=== PATIENT | male | born 1955 | race Caucasian/White ===

== ENCOUNTER 2020-06-03 09:25 | Outpatient (CLI) | payer MEDICARE, SELFPAY ==
--- NOTE | ~2020-06-03 | XR_ITS ---
EXAMINATION:XR_CERV2-3V_CR DATE: 06/03/2020 09:58 INDICATION: Hand numbness TECHNIQUE: AP, lateral, and odontoid views of the cervical spine are provided. COMPARISON: CT, 02/04/2017 FINDINGS: There are 2 mm of unchanged retrolisthesis of C4 on C5. The vertebral body heights are main tained. The odontoid is intact. No fracture is identified. There is severe loss of intervertebral dis c space height from C4-5 through C6-7. Prevertebral soft tissues are normal. There is moderate multil evel facet and vertebral joint osteoarthritis. Carotid atherosclerosis is noted. IMPRESSION: 1. Moderate to severe cervical spondylosis without acute findings or significant interval change. Reviewed, dictated and finalized at location A. ETRIC ANAESTHETIST IMPRESSION: 1. Moderate to severe cervical spondylosis without acute findings or significan t interval change.
--- NOTE | ~2020-06-03 | XR_ITS ---
EXAMINATION: XR chest 2V DATE: 06/03/2020 09:58 INDICATION: Hand numbness TECHNIQUE: Frontal and lateral views of the chest are obtained COMPARISON: 04/13/2016 FINDINGS: The lungs are free of acute opacities. There are chronic opacities in the bilateral suprahi lar regions which have not significantly changed. There is no pleural effusion or pneumothorax. The c ardiomediastinal silhouette is normal. There is moderate thoracic spondylosis. Surgical clips in the upper abdomen on the lateral view are consistent with cholecystectomy. IMPRESSION: 1. No acute cardiopulmonary abnormality. Reviewed, dictated and finalized at location A. ERMAKER SHIP
[2020-06-03 09:43] LABS: Basophils Absolute Auto 0.03 K/mm3 (0.00-0.10); Basophils Percent Auto 0.4 % (0.0-1.0); Eosinophils Percent Auto 1.3 % (1.0-6.0); Hematocrit 41.2 % (37.0-46.0); Hemoglobin 14.2 g/dL (12.4-15.3); Immature Granulocyte Absolute 0.03 K/mm3 (0.00-0.00); Immature Granulocyte Percent A 0.4 % (0.0-0.0); Lymphocytes Absolute Auto 1.85 K/mm3 (1.10-4.50); Lymphocytes Percent Auto 24.5 % (18.0-42.0); Mean Corpuscular HGB Conc 34.5 g/dL (32.0-36.0); Mean Corpuscular Hemoglobin 31.9 pg (27.0-31.0); Mean Corpuscular Volume 92.6 fL (78.0-102.0); Mean Platelet Volume 10.1 fl (8.7-11.0); Monocytes Absolute Auto 0.68 K/mm3 (0.10-0.90); Neutrophils Absolute Auto 4.9 K/mm3 (1.7-7.2); Neutrophils Percent Auto 64.4 % (50.0-70.0); Platelet Count Result 205 K/mm3 (150-420); Red Blood Count 4.45 M/mm3 (4.70-6.10); Red Cell Distribution Width 12.5 % (11.6-14.4); White Blood Count 7.5 K/mm3 (4.8-10.8)
[2020-06-03 11:21] LABS: Alanine Aminotransferase 144 U/L (16-63); Albumin Level 4.1 g/dL (3.4-5.0); Alkaline Phosphatase 60 U/L (46-116); Anion Gap 11 mmol/L (8-16); Aspartate Amino Transferase 79 U/L (15-37); Bilirubin,Total 1.3 mg/dL (0.00-1.00); Blood Urea Nitrogen 10 mg/dL (7-18); CRP < 0.5 mg/dL (0.0-0.9); Carbon Dioxide 32 mmol/L (21-32); Chloride 100 mmol/L (98-108); Creatine Kinase 389 U/L (39-308); Estimated Glomerular Filt Rate > 60; Glucose 108 mg/dL (70-99); Magnesium 0.6 mg/dL (1.8-2.4); Osmolality Calculated 296 mOsm/kg (285-295); Potassium 3.2 mmol/L (3.5-5.1); Sodium 143 mmol/L (136-145); Thyroid Stimulating Hormone 2.41 uIU/mL (0.36-3.74); Total Protein 7.7 g/dL (6.4-8.2); Uric Acid 6.8 mg/dL (3.5-7.2)
[2020-06-03 11:30] LABS: Calcium 5.9 mg/dL (8.5-10.1)
[2020-06-07 16:41] LABS: Hepatitis A Antibody IgM Nonreactive; Hepatitis B Core Antibody Nonreactive (Nonreactive); Hepatitis B Surface Antigen Nonreactive (Nonreactive); Hepatitis C Signal to Cutoff 0.03 ratio (<1.00); Hepatitis C Virus Antibody Nonreactive (Nonreactive)
== END 2020-06-03 09:26 | disposition home or self-care (01) ==
LOC: CHSLAB 09:32
PROVIDERS: PCP Internal Medicine; Visit Provider Internal Medicine
DX: R20.0 Anesthesia of skin (principal); I10 Essential (primary) hypertension; M13.0 Polyarthritis, unspecified; R94.5 Abnormal results of liver function studies
CPT/HCPCS: 36415; 71046; 72040; 80053; 80074; 82550; 83735; 84443; 84550; 85025; 86140

== ENCOUNTER 2020-06-07 07:39 | Outpatient (CLI) | payer MEDICARE, SELFPAY ==
--- NOTE | ~2020-06-07 | US_ITS ---
EXAMINATION: US right upper quadrant DATE: 06/07/2020 08:03 INDICATION: Right upper quadrant pain TECHNIQUE: Multiple grayscale and Doppler ultrasound images of the abdomen were obtained. COMPARISON: CT, 10/25/2012 FINDINGS: Bowel gas obscures visualization of the pancreas. The visualized portions of the pancreas a re unremarkable. There is a 2.1 cm hemangioma in the right hepatic lobe. The liver is otherwise ana cristina l with normal echogenicity and echotexture. No surface nodularity. Normal hepatopetal flow in the barbara n portal vein. The gallbladder is surgically absent. The normal common bile duct measures 4 mm. IMPRESSION: 1. No sonographic correlate for the patient's symptoms. Reviewed, dictated and finalized at location A. TAILER
== END 2020-06-07 07:40 | disposition home or self-care (01) ==
LOC: CHSIMG 07:40
PROVIDERS: PCP Internal Medicine; Visit Provider Internal Medicine
DX: R94.5 Abnormal results of liver function studies (principal)
CPT/HCPCS: 76705

== ENCOUNTER 2021-01-23 09:58 | Outpatient (CLI) | payer MEDICARE, SELFPAY ==
[2021-01-23 13:58] LABS: SARS-CoV-2 RNA PCR Negative (Negative)
== END 2021-01-23 09:59 | disposition home or self-care (01) ==
LOC: CHSLAB 10:00
PROVIDERS: PCP Internal Medicine; Visit Provider Internal Medicine
DX: Z20.822 Contact with and (suspected) exposure to COVID-19 (principal)
CPT/HCPCS: C9803; U0003; U0005

== ENCOUNTER 2021-02-14 05:53 | Emergency (ER) | payer MEDICARE, SELFPAY ==
--- NOTE | ~2021-02-14 | XR_ITS ---
EXAMINATION: XR chest 2V DATE: 02/14/2021 07:01 INDICATION: Dizziness TECHNIQUE: AP and lateral views of the chest are obtained. COMPARISON: 06/03/2020 FINDINGS: Chronic bilateral suprahilar opacities are unchanged. No acute airspace opacities are ident ified. There is no pleural effusion or pneumothorax. The cardiomediastinal silhouette is normal. Ther e is moderate thoracic spondylosis. IMPRESSION: 1. No acute cardiopulmonary abnormality. Reviewed, dictated and finalized at location A.
--- NOTE | ~2021-02-14 | CT_ITS ---
EXAMINATION: CT brain wo con INDICATION: Dizziness COMPARISON: 02/04/2017 TECHNIQUE: Standard unenhanced head CT. The dose-length product (DLP) was 681.00 mGy-cm. The mA was a djusted according to patient size. Iterative reconstruction technique was employed. FINDINGS: There is no intracranial hemorrhage, acute infarction, or abnormal mass lesion. The ventric les are normal. There is no abnormal mass effect or midline shift. The rudolph-white matter differentiat ion is normal. The basal cisterns are patent. The orbits are normal. There is mucosal thickening of t he left sphenoid sinus and right frontal sinus. IMPRESSION: 1. No acute intracranial abnormality. Reviewed, dictated and finalized at location A.
[2021-02-14 06:14] VITALS: BP 192/116; PULSE 126; RESP 23; TEMP 36.4; O2SAT 96
--- NOTE | 2021-02-14 06:20 | ECG_ITS ---
Measurements Intervals [place] Rate: 120 P: 60 [place]: 135 QRS: 19 QRSD: 134 T: -7 QT: 338 QTc: 478 Interpretive Statements SINUS TACHYCARDIA VENTRICULAR PREMATURE COMPLEX RIGHT BUNDLE BRANCH BLOCK BASELINE ARTIFACT- I, II, III, AVR, AVL, AVF, V1-V6 ABNORMAL ECG Electronically Signed On 02-14-2021 15:48:50 CDT by Seth Blancas D.O.
--- NOTE | 2021-02-14 06:25 | ED.DIZZY ---
HPI - Dizziness General Chief Complaint: Dizziness <Delano Mejias MD - Last Filed: 02/14/21 06:37> Stated Complaint: General Sickness <Delano Mejias MD - Last Filed: 02/14/21 06:37> Time Seen by Provider: 02/14/21 06:26 <Delano Mejias MD - Last Filed: 02/14/21 06:37> Source: patient and family <Delano Mejias MD - Last Filed: 02/14/21 06:37> Mode of arrival: wheelchair <Delano Mejias MD - Last Filed: 02/14/21 06:37> Limitations: no limitations <Delano Mejias MD - Last Filed: 02/14/21 06:37> History of Present Illness HPI Narrative: 65-year-old man who drinks daily comes in today complaining of feeling like he is going to pass out, shaking and sweating. It started just prior to arrival. Patient states that he last drank at 7:00 p.m. last night. He states that he has had no vomiting, diarrhea, chest pain, shortness of breath, abdominal pain, dysuria, cough or cold symptoms. <Delano Mejias MD - Last Filed: 02/14/21 06:37> MD elicited complaint: lightheadedness <Delano Mejias MD - Last Filed: 02/14/21 06:37> Onset (ago): hour(s) (1) <Delano Mejias MD - Last Filed: 02/14/21 06:37> Timing: sudden onset <Delano Mejias MD - Last Filed: 02/14/21 06:37> Severity: severe <Delano Mejias MD - Last Filed: 02/14/21 06:37> Description: lightheadedness <Delano Mejias MD - Last Filed: 02/14/21 06:37> History of similar symptoms: Yes <Delano Mejias MD - Last Filed: 02/14/21 06:37> Exacerbating factors: change in body position and standing <Delano Mejias MD - Last Filed: 02/14/21 06:37> Relieving factors: nothing <Delano Mejias MD - Last Filed: 02/14/21 06:37> Related Data Home Medications: Home Medications Medication Instructions Recorded Confirmed atorvastatin 10 mg tablet 10 mg PO DAILY 08/10/20 02/14/21 duloxetine 20 mg capsule,delayed 20 mg PO BID 08/10/20 02/14/21 release losartan 50 mg tablet 50 mg PO DAILY 08/10/20 02/14/21 magnesium oxide 400 mg (241.3 mg 400 mg PO DAILY 08/10/20 02/14/21 magnesium) tablet metoprolol succinate 50 mg 50 mg PO DAILY 08/10/20 02/14/21 tablet,extended release 24 hr omeprazole 20 mg capsule,delayed 20 mg PO DAILY 08/10/20 02/14/21 release potassium chloride 20 mEq 20 meq PO BID 08/10/20 02/14/21 tablet,extended release cyclobenzaprine 10 mg PO DAILY 02/14/21 02/14/21 <Delano Mejias MD - Last Filed: 02/14/21 06:37> Allergies/Adverse Reactions: Allergies Allergy/AdvReac Type Severity Reaction Status Date / Time codeine AdvReac Mild Vomiting Verified 08/10/20 10:52 <Delano Mejias MD - Last Filed: 02/14/21 06:37> Review of Systems Review of Systems: All systems reviewed & are unremarkable except as noted in HPI and below <Delano Mejias MD - Last Filed: 02/14/21 06:37> Constitutional: Constitutional: Denies chills, Denies fever(s) and Reports weakness <Delano Mejias MD - Last Filed: 02/14/21 06:37> Eyes: Eyes: Denies change in vision and Denies photophobia <Delano Mejias MD - Last Filed: 02/14/21 06:37> ENT: Denies dysphagia, Denies nasal congestion and Denies sore throat <Delano Mejias MD - Last Filed: 02/14/21 06:37> Cardiovascular: Cardiovascular: Denies chest pain and Denies radiating jaw, neck or arm pain <Delano Mejias MD - Last Filed: 02/14/21 06:37> Respiratory: Respiratory: Denies cough, Denies dyspnea and Denies wheezing <Delano Mejias MD - Last Filed: 02/14/21 06:37> Gastrointestinal: Gastrointestinal: Denies abdominal pain, Denies diarrhea, Denies nausea and Denies vomiting <Delano Mejias MD - Last Filed: 02/14/21 06:37> Genitourinary: Genitourinary: Denies dysuria and Denies urinary frequency <Delano Mejias MD - Last Filed: 02/14/21 06:37> Musculoskeletal: Musculoskeletal: Denies back pain, Denies arthralgias and Denies joint
[2021-02-14 06:43] LABS: Basophils Absolute Auto 0.03 K/mm3 (0.00-0.10); Basophils Percent Auto 0.4 % (0.0-1.0); Eosinophils Absolute Auto 0.08 K/mm3 (0.02-0.50); Hematocrit 38.9 % (37.0-46.0); Hemoglobin 13.3 g/dL (12.4-15.3); Immature Granulocyte Absolute 0.07 K/mm3 (0.00-0.00); Immature Granulocyte Percent A 0.9 % (0.0-0.0); Lymphocytes Absolute Auto 1.53 K/mm3 (1.10-4.50); Lymphocytes Percent Auto 18.6 % (18.0-42.0); Mean Corpuscular HGB Conc 34.2 g/dL (32.0-36.0); Mean Corpuscular Volume 93.7 fL (78.0-102.0); Monocytes Absolute Auto 0.62 K/mm3 (0.10-0.90); Monocytes Percent Auto 7.5 % (2.0-11.0); Neutrophils Absolute Auto 5.9 K/mm3 (1.7-7.2); Neutrophils Percent Auto 71.6 % (50.0-70.0); Platelet Count Result 181 K/mm3 (150-420); Red Blood Count 4.15 M/mm3 (4.70-6.10); Red Cell Distribution Width 12.7 % (11.6-14.4); White Blood Count 8.2 K/mm3 (4.8-10.8)
[2021-02-14 06:50] LABS: Add Urine Microscopic? YES; Appearance Urine Clear (Clear); Bilirubin Urine Negative (Negative); Blood Urine Negative (Negative); Color Urine Yellow (Yellow); Glucose Urine UA Negative (Negative); Ketones Urine Negative (Negative); Leukocyte Esterase Ur Negative LEU/UL (Negative); Nitrate Urine Negative (Negative); Protein Urine Negative (Negative)
[2021-02-14 06:54] LABS: RBC Urine None seen /hpf (0-2); WBC Urine None seen /hpf (0-3)
[2021-02-14 06:55] LABS: Bacteria Urine Trace /hpf
[2021-02-14 06:58] LABS: INR 1.2; Partial Thromboplastin Time 25.7 SEC (23.90-30.70); Prothrombin Time 12.8 Seconds (9.50-12.10)
[2021-02-14 06:59] LABS: Amphetamine Screen Urine Negative (Negative); Barbiturate Screen Urine Negative (Negative); Benzodiazepines Screen Urine Negative (Negative); Cannabinoid Screen Urine Negative (Negative); Cocaine Screen Urine Negative (Negative); Methadone Screen Urine Negative (Negative); Opiate Screen Urine Positive (Negative); Phencyclidine Screen Urine Negative (Negative)
[2021-02-14] MEDS: THIAMINE HCL INJ 100 MG, FOLIC ACID INJ 1 MG, MULTIVITAMINS-12 INJ VIAL 1 5 ML, MULTIVI... 500 MG IV CONT (06:59)
[2021-02-14 07:01] LABS: Alanine Aminotransferase 82 U/L (16-63); Albumin Level 3.7 g/dL (3.4-5.0); Alkaline Phosphatase 47 U/L (46-116); Anion Gap 12 mmol/L (8-16); Aspartate Amino Transferase 58 U/L (15-37); Bilirubin,Total 0.9 mg/dL (0.00-1.00); Blood Urea Nitrogen 17 mg/dL (7-18); Calcium 6.3 mg/dL (8.5-10.1); Carbon Dioxide 28 mmol/L (21-32); Chloride 101 mmol/L (98-108); Estimated CRCL calculation 59 ml/min; Estimated Glomerular Filt Rate > 60; Glucose 105 mg/dL (70-99); Lipase 56 U/L (73-393); Osmolality Calculated 293 mOsm/kg (285-295); Phosphorus 4.2 mg/dL (2.6-4.7); Potassium 3.5 mmol/L (3.5-5.1); Sodium 141 mmol/L (136-145); Total Protein 7.4 g/dL (6.4-8.2); Troponin I 10.7 ng/L (0.00-60.4)
[2021-02-14 07:06] LABS: CRP < 0.5 mg/dL (0.0-0.9); Ethanol < 3 mg/dL (0-6)
[2021-02-14 07:15] LABS: Magnesium 0.7 mg/dL (1.8-2.4)
[2021-02-14 07:16] VITALS: BP 181/111; PULSE 119; RESP 21; O2SAT 96
[2021-02-14] MEDS: MAGNESIUM SULF 2 GM/WATER 50ML 2 GM/50 ML BAG IVPB ×2 (07:30→08:34)
[2021-02-14 07:35] LABS: SARS-CoV-2 RNA PCR Positive (Negative)
--- NOTE | 2021-02-14 07:39 | PC.NURSE ---
pt resting quietly in exam room. c/o feeling shaky at this time. no tremors noted. skin w/d and sl pale. resp even and non-labored. sipping water. denies nausea. iv infusing well without sx of infiltration. VSS.
--- NOTE | 2021-02-14 09:07 | PC.NURSE ---
pt ate buttered toast. denies nausea. denies shaky feeling at this time. iv infusing well.
[2021-02-14 09:53] VITALS: BP 152/99; PULSE 101; RESP 18; TEMP 36.6; O2SAT 96
== END 2021-02-14 09:56 | disposition home or self-care (01) ==
PROVIDERS: Emergency Medicine; Emergency Provider Emergency Medicine; PCP Internal Medicine
DX: E83.42 Hypomagnesemia (principal); F10.230 Alcohol dependence with withdrawal, uncomplicated; U07.1 COVID-19; Z79.899 Other long term (current) drug therapy; K21.9 Gastro-esophageal reflux disease without esophagitis; I10 Essential (primary) hypertension; K58.9 Irritable bowel syndrome, unspecified
CPT/HCPCS: 36415; 70450; 71046; 80053; 80307; 81001; 83605; 83690; 83735; 84100; 84484; 85025; 85610; 85730; 86140; 87040; 93005; 96365; 96366; 96368; 99283; 99284; C9803; J3411; J3475; J7030; U0003; U0005

== ENCOUNTER 2021-06-30 16:21 | Inpatient (IN) | payer MEDICARE, OTHER, SELFPAY ==
--- NOTE | ~2021-06-30 | CT_ITS ---
EXAMINATION: CT brain wo con DATE: 06/30/2021 17:01 INDICATION: Confusion TECHNIQUE: Computed tomography (CT) of the head was performed without intravenous contrast. Sagittal and coronal reconstructions were performed. The mA was adjusted according to patient size. Iterative reconstruction technique was employed. The dose-length product was 681.00 mGy-cm. COMPARISON: head CT dated 02/14/2021 FINDINGS: Small old lacunar infarct at the anterior limb of the left internal capsule. No acute intracranial he morrhage, acute infarction or abnormal extra axial fluid collection. There is moderate scattered whit e matter hypoattenuation consistent with chronic small vessel ischemic disease. Ventricles are ana cristina l and symmetric. No mass/mass effect. Small dystrophic calcification at the right parietal lobe. Mild mucosal thickening the left sphenoid sinus. The orbits and mastoid air cells are normal. IMPRESSION: 1. No acute intracranial process. 2. Unchanged small old lacunar infarct at the anterior limb of left internal capsule 3. Stable moderate scattered white matter hypoattenuation consistent with chronic small vessel ischem ic disease. Reviewed, dictated and finalized at location A. TRANSFER CLERK IMPRESSION: 1. No acute intracranial process. 2. Unchanged small old lacunar infarct at the anterior limb of left internal ca psule 3. Stable moderate scattered white matter hypoattenuation consistent with chron ic small vessel ischemic disease.
--- NOTE | ~2021-06-30 | US_ITS ---
EXAMINATION: US carotid duplex BI DATE: 07/03/2021 08:14 INDICATION: Aphasia and confusion TECHNIQUE: Grayscale, color Doppler, and pulsed Doppler images of the cervical carotid arteries were obtained. The degree of vessel stenosis is placed in one of the following categories: normal, <50%, 5 0-69%, >=70% but less than near-occlusion, near-occlusion, or total occlusion. Note that percent sten osis relative to normal distal artery lumen diameter is indirectly measured from velocity measurement s as described by Pineda, et al. Radiology 2003; 229:340-346. COMPARISON: None. FINDINGS: RIGHT: The right common carotid artery (CCA) peak systolic velocity (PSV) is 90 cm/s. The right internal car otid artery (ICA) PSV is 102 cm/s. The right ICA end-diastolic velocity (EDV) is 27 cm/s. The right I CA/CCA PSV ratio is 1.1. Grayscale and color Doppler images yield an estimate of <50% diameter reduct ion from plaque in the ICA. The external carotid artery (ECA) PSV is 49 cm/s. There is antegrade flow in the right vertebral artery. LEFT: The left CCA PSV is 108 cm/s. The left ICA PSV is 92 cm/s. The left ICA EDV is 24 cm/s. The left ICA/ CCA PSV ratio is 0.9. Grayscale and color Doppler images yield an estimate of <50% diameter reduction from plaque in the ICA. The ECA PSV is 56 cm/s. There is antegrade flow in the left vertebral artery . IMPRESSION: 1. <50% stenosis in the right internal carotid artery. 2. <50% stenosis in the left internal carotid artery. Reviewed, dictated and finalized at location A.
--- NOTE | ~2021-06-30 | MR_ITS ---
EXAMINATION: MR brain/brain stem wo con DATE: 07/01/2021 10:07 INDICATION: Altered mental status. TECHNIQUE: Magnetic resonance imaging (MRI) of the brain and brainstem was performed without intraven ous contrast. Sequences included sagittal and axial T1-weighted FSE, axial diffusion-weighted FS EPI, axial T2*-weighted GRE, axial T2-weighted FLAIR Propeller, and axial T2-weighted Propeller. Apparent diffusion coefficient (ADC) maps were created. COMPARISON: Head CT 06/30/2021 FINDINGS: There are scattered areas of nonspecific increased T2-weighted signal intensity in the cere bral white matter. There is an old lacunar infarct in the left basal ganglia. There is no intracrania l hemorrhage, acute infarction, or abnormal intracranial mass lesion. The ventricles are normal in si ze. There is mild mucosal thickening in the paranasal sinuses. The orbits are normal. There is a trac e left mastoid effusion. IMPRESSION: 1. Moderate nonspecific cerebral white matter disease, which likely represents chronic small vessel i schemic disease. 2. Old lacunar infarct in the left basal ganglia. Reviewed, dictated and finalized at location A. RT CLERK IMPRESSION: 1. Moderate nonspecific cerebral white matter disease, which likely represents chronic small vessel ischemic disease. 2. Old lacunar infarct in the left basal ganglia.
--- NOTE | ~2021-06-30 | XR_ITS ---
EXAMINATION: XR chest 1V portable DATE: 06/30/2021 18:33 INDICATION: Confusion TECHNIQUE: frontal view of the chest was obtained. COMPARISON: Chest radiograph dated 02/14/[address] dated 04/13/2016 FINDINGS: No significant change in chronic masslike opacities in the bilateral suprahilar regions with appearan ce favoring atelectasis/scarring on CT from 5 years prior. No new airspace opacities, pulmonary edema , pleural effusion or pneumothorax. The cardiomediastinal silhouette is normal. IMPRESSION: 1. Stable appearance of chronic bilateral suprahilar opacities consistent with atelectasis/scarring. No acute cardiopulmonary disease. Reviewed, dictated and finalized at location A. ING MACHINE FEEDER
--- NOTE | 2021-06-30 16:35 | ED.GENADULT ---
HPI - General Adult General Chief complaint: Altered Mental Status Stated complaint: lost appetite,slept all day,memory loss,headache Time Seen by Provider: 06/30/21 16:35 Source: patient Mode of arrival: ambulatory History of Present Illness HPI narrative: Александр is a 66M with a PMH of GERD, HTN, HLD and IBS that presented to the ER with his with AMS for a couple days. He woke up and went to work on the computer and couldn't work it. He has also had trouble following directions, getting oriented just generally gets confused. 2 days ago he reportedly had some ataxia with his hands. Today he had a headache but the ataxia and headache have resolved but confusion persists. He denies any CP, SOB, lightheadedness, N/V or head trauma. Related Data Home Medications Medication Instructions Recorded Confirmed atorvastatin 10 mg tablet 10 mg PO DAILY 08/10/20 06/30/21 duloxetine 20 mg capsule,delayed 30 mg PO BID 08/10/20 06/30/21 release magnesium oxide 400 mg (241.3 mg 400 mg PO DAILY 08/10/20 06/30/21 magnesium) tablet metoprolol succinate 50 mg 50 mg PO BID 08/10/20 06/30/21 tablet,extended release 24 hr potassium chloride 20 mEq 20 meq PO BID 08/10/20 06/30/21 tablet,extended release Allergies Allergy/AdvReac Type Severity Reaction Status Date / Time codeine AdvReac Mild Vomiting Verified 07/04/21 15:05 Review of Systems Constitutional: Constitutional: Reports no additional constitutional complaints Eyes: Eyes: Reports no additional eye complaints ENT: Reports system reviewed and no additional complaints, except as documented Cardiovascular: Cardiovascular: Reports no additional cardiovascular complaints Respiratory: Respiratory: Reports no additional respiratory complaints Gastrointestinal: Gastrointestinal: Reports no additional gastrointestinal complaints Genitourinary: Genitourinary: Reports no additional male genitourinary complaints Musculoskeletal: Musculoskeletal: Reports no additional musculoskeletal complaints Integumentary/Breasts: Skin/Breast: Reports system reviewed and no additional complaints, except as docu Neurologic: Reports as per HPI Psychiatric: Psychiatric: Reports no additional psychiatric complaints Endocrine: Endocrine: Reports no additional endocrine complaints Hematologic/Lymphatic: Hematologic/Lymphatic: Reports no additional hematologic/lymphatic complaints Allergic/Immunologic: Allergic/Immunologic: Reports no additional allergic/immunologic complaints [facility] Past Medical History Medical History (System 07/04/21 @ 15:05 by Ebony Neri) Gastroesophageal reflux disease Hemangioma of liver Hypertension Irritable bowel syndrome Social History Social History (System 07/04/21 @ 15:05 by Ebony Neri) Smoking status: Never smoker Alcohol intake: current Alcohol use details: Daily Substance use: never Exam Const: General: no acute distress and alert Orientation/consciousness: patient oriented x3 Limitations: No altered mental status HENMT: Head: normal to inspection Other: atraumatic Eyes: Conjunctivae: conjunctivae normal Pupils: Equal, round and reactive pupils present Neck: Neck: normal visual inspection Chest: Chest palpation & inspection: normal inspection of the chest Resp: Effort & Inspection: normal respiratory effort Auscultation: clear to auscultation bilaterally Cardio: Rate: regular rate Rhythm: regular rhythm GI: Inspection: non-distended GI Palp: Yes Soft to palpation, No Tenderness to palpation present (GI) and No Guarding due to palpation present (GI) Skin: General skin exam: normal color Rashes: no rashes Neuro: General: moves all extremities, no meningeal signs, no focal motor deficits and CN's II-XI intact bilaterally Cranial nerves: Yes Nystagmus not present Other: Oriented to self only. Is very confused. He cannot follow directions very well and he has trouble finding words as well. Extrem: Gene
--- NOTE | 2021-06-30 16:45 | ECG_ITS ---
Measurements Intervals [place] Rate: 76 P: 58 [place]: 145 QRS: -14 QRSD: 132 T: 13 QT: 378 QTc: 427 Interpretive Statements SINUS RHYTHM RIGHT BUNDLE BRANCH BLOCK [120+ ms QRS DURATION, UPRIGHT V1, 40+ ms S IN I/aVL/V4/V5/V6] ABNORMAL ECG COMPARED TO ECG 02/14/2021 06:30:41 HEART RATE HAS DECREASED Electronically Signed On 06-30-2021 17:22:54 RUBBER ATTACHER by Clarence Michaud M.D.
[2021-06-30 16:47] VITALS: BP 173/97; PULSE 78; RESP 16; TEMP 36.8; O2SAT 100
[2021-06-30 17:08] LABS: Basophils Absolute Auto 0.02 K/mm3 (0.00-0.10); Basophils Percent Auto 0.2 % (0.0-1.0); Eosinophils Absolute Auto 0.06 K/mm3 (0.02-0.50); Eosinophils Percent Auto 0.7 % (1.0-6.0); Hematocrit 41.4 % (37.0-46.0); Hemoglobin 13.9 g/dL (12.4-15.3); Immature Granulocyte Absolute 0.03 K/mm3 (0.00-0.00); Immature Granulocyte Percent A 0.3 % (0.0-0.0); Lymphocytes Absolute Auto 1.76 K/mm3 (1.10-4.50); Lymphocytes Percent Auto 19.9 % (18.0-42.0); Mean Corpuscular HGB Conc 33.6 g/dL (32.0-36.0); Mean Corpuscular Hemoglobin 32.5 pg (27.0-31.0); Mean Corpuscular Volume 96.7 fL (78.0-102.0); Mean Platelet Volume 9.7 fl (8.7-11.0); Monocytes Absolute Auto 0.82 K/mm3 (0.10-0.90); Monocytes Percent Auto 9.3 % (2.0-11.0); Neutrophils Absolute Auto 6.1 K/mm3 (1.7-7.2); Neutrophils Percent Auto 69.6 % (50.0-70.0); Platelet Count Result 198 K/mm3 (150-420); Red Blood Count 4.28 M/mm3 (4.70-6.10); Red Cell Distribution Width 12.2 % (11.6-14.4); White Blood Count 8.8 K/mm3 (4.8-10.8)
[2021-06-30 17:19] LABS: INR 1.1; Prothrombin Time 11.8 Seconds (9.50-12.10)
[2021-06-30 17:22] LABS: Alanine Aminotransferase 55 U/L (16-63); Alkaline Phosphatase 45 U/L (46-116); Anion Gap 12 mmol/L (8-16); Aspartate Amino Transferase 38 U/L (15-37); Bilirubin,Total 1.5 mg/dL (0.00-1.00); Blood Urea Nitrogen 11 mg/dL (7-18); Calcium 8.9 mg/dL (8.5-10.1); Carbon Dioxide 27 mmol/L (21-32); Chloride 98 mmol/L (98-108); Estimated CRCL calculation 57 ml/min; Estimated Glomerular Filt Rate > 60; Ethanol 3 mg/dL (0-6); Glucose 108 mg/dL (70-99); Osmolality Calculated 284 mOsm/kg (285-295); Potassium 3.7 mmol/L (3.5-5.1); Sodium 137 mmol/L (136-145); Total Protein 7.9 g/dL (6.4-8.2)
[2021-06-30 17:28] LABS: Appearance Urine Clear (Clear); Bilirubin Urine Negative (Negative); Color Urine Yellow (Yellow); Glucose Urine UA Negative (Negative); Ketones Urine Negative (Negative); Leukocyte Esterase Ur Negative (Negative); Nitrate Urine Negative (Negative); Protein Urine Negative (Negative); Specific Grav Ur 1.025 (1.010-1.020); Urobilinogen Urine 0.2 mg/dL (0.2-1.0)
[2021-06-30 17:28] LABS: Magnesium 0.7 mg/dL (1.8-2.4)
[2021-06-30 17:31] LABS: Troponin I 7.7 ng/L (0.00-60.4)
[2021-06-30 17:33] LABS: Add Urine Microscopic? YES; Bacteria Urine Trace /hpf; Blood Urine Trace (Negative); Squamous Epithelial Cell Urine Rare /hpf (Few); WBC Urine 0-3 /hpf (0-3)
[2021-06-30 17:34] LABS: Thyroid Stimulating Hormone 1.92 uIU/mL (0.36-3.74)
[2021-06-30 17:34] LABS: Amphetamine Screen Urine Negative (Negative); Barbiturate Screen Urine Negative (Negative); Benzodiazepines Screen Urine Negative (Negative); Cannabinoid Screen Urine Negative (Negative); Cocaine Screen Urine Negative (Negative); Methadone Screen Urine Negative (Negative); Opiate Screen Urine Negative (Negative); Phencyclidine Screen Urine Negative (Negative)
[2021-06-30] MEDS: MAGNESIUM SULF 2 GM/WATER 50ML 2 GM/50 ML BAG IVPB ×2 (17:44→21:15)
[2021-06-30 18:10] VITALS: BP 155/80; PULSE 76; RESP 16; O2SAT 97
[2021-06-30 18:25] VITALS: BMI 24.1
[2021-06-30 18:54] LABS: Lactic Acid Reflex 0.6 mmol/L (0.4-2.0)
[2021-06-30 18:58] LABS: CRP < 0.5 mg/dL (0.0-0.9)
[2021-06-30 19:03] LABS: SARS-CoV-2 Ag Negative (Negative)
[2021-06-30 20:00] VITALS: BP 152/86; PULSE 73; RESP 20; TEMP 37.6; O2SAT 97
[2021-06-30 20:06] LABS: Magnesium 1.6 mg/dL (1.8-2.4)
[2021-06-30] MEDS: SODIUM CHLORIDE 0.9% IV 1,000 ML 100 ML IV CONT (20:36)
[2021-07-01] VITALS (7 sets, daily range): BP systolic 123–163; BP diastolic 63–90; PULSE 69–78; RESP 14–20; TEMP 36.7–37.8; O2SAT 96–100
[2021-07-01 05:11] LABS: Hematocrit 40.9 % (37.0-46.0); Hemoglobin 13.6 g/dL (12.4-15.3); Mean Corpuscular HGB Conc 33.3 g/dL (32.0-36.0); Mean Corpuscular Hemoglobin 32.2 pg (27.0-31.0); Mean Corpuscular Volume 96.9 fL (78.0-102.0); Mean Platelet Volume 9.5 fl (8.7-11.0); Platelet Count Result 170 K/mm3 (150-420); Red Blood Count 4.22 M/mm3 (4.70-6.10); Red Cell Distribution Width 11.9 % (11.6-14.4); White Blood Count 7.6 K/mm3 (4.8-10.8)
[2021-07-01 05:31] LABS: Alanine Aminotransferase 49 U/L (16-63); Albumin Level 3.5 g/dL (3.4-5.0); Alkaline Phosphatase 44 U/L (46-116); Anion Gap 9 mmol/L (8-16); Aspartate Amino Transferase 39 U/L (15-37); Bilirubin,Total 1.2 mg/dL (0.00-1.00); Blood Urea Nitrogen 9 mg/dL (7-18); Calcium 8.3 mg/dL (8.5-10.1); Carbon Dioxide 27 mmol/L (21-32); Chloride 99 mmol/L (98-108); Estimated CRCL calculation 65 ml/min; Estimated Glomerular Filt Rate > 60; Glucose 107 mg/dL (70-99); Magnesium 2.5 mg/dL (1.8-2.4); Osmolality Calculated 278 mOsm/kg (285-295); Potassium 3.7 mmol/L (3.5-5.1); Sodium 135 mmol/L (136-145); Total Protein 7.4 g/dL (6.4-8.2)
[2021-07-01] MEDS: POTASSIUM CHLORIDE 20 MEQ TABLET PO ×2 (08:50→17:38)
[2021-07-01] MEDS: ENOXAPARIN 40 MG/0.4 ML SYRINGE SUB-Q (08:52)
[2021-07-01] MEDS: DULoxetine HCL 30 MG CAPSULE.DR PO ×2 (08:53→17:38)
[2021-07-01] MEDS: ATORVASTATIN 10 MG TABLET PO (08:53)
[2021-07-01] MEDS: MAGNESIUM OXIDE 400 MG TABLET PO (08:53)
[2021-07-01] MEDS: LOSARTAN POTASSIUM 50 MG TABLET PO (08:53)
[2021-07-01] MEDS: METOPROLOL SUCCINATE EXT REL 50 MG TABCR PO ×2 (08:54→17:38)
[2021-07-01] MEDS: FOLIC ACID 0.4 MG TABLET PO (09:00)
[2021-07-01] MEDS: THIAMINE HCL 100 MG TABLET PO (09:00)
[2021-07-01] MEDS: PANTOPRAZOLE SODIUM IV 40 MG VIAL IV PUSH (09:02)
[2021-07-01] MEDS: SODIUM CHLORIDE 0.9% IV 1,000 ML 100 ML IV CONT (09:33)
--- NOTE | 2021-07-01 11:29 | PM.IMHP ---
H&P: HPI History of Present Illness Date/Time: 07/01/21 11:29 this is a 66-year-old male who presented to our emergency department with altered mental status. Patient has a past medical history GERD, hypertension, irritable bowel syndrome, and Hemangioma of liver. Patient is a poor historian attempted to call his no answer could not leave a message. All information obtained from medical records. Patient did note that 1 night he went to sleep and when he woke up he felt different. He was not able to describe how he felt different. During this assessment patient does have Dysarthria with confusion. Patient notes that he does have family history of dementia. When asked his name he was unable to tell me his name , when I said his name, he did not know his name. Patient is definitely unable to express himself with words. Patient appears to be cognitively impaired other neurological assessment negative. Vital signs 99.3, 71, 14, 100% on room air, 163/87, 8.8, 13.9, 41.4, platelets 198, sodium 137, potassium 3.7, BUN 11, creatinine 1.11,, lactic acid 0.6, magnesium 0.7, AST 58, ALT 82, total bili 0.9, troponin 10.7, CRP 0.5, TSH 1.92 UA with trace of blood in toxicology negative Covid negative CT MRI does not indicate acute infarct, EKG sinus rhythm with a heart rate of 76. The patient denies SOB, CP, palpitation, extremity numbness, lightheadedness, dizziness, constipation, diarrhea, chills, or fever. Spoke with patient's according to his he woke up yesterday morning attempted to use the computer and was unable to use the computer. Patient does have a history of alcohol abuse he drinks 6-10 tall glasses undiluted ROM daily .patient has not had a drink for 2 days. Patient had visited our ED for withdrawal symptoms in the past. Chief Complaint: AMS, confusion Review of Systems Review of Systems: A 14 organ system Review of Systems was performed and pertinent positives included in the HPI, otherwise remaining ROS is negative. [facility] Past Medical History Medical History (Updated 07/01/21 @ 12:00 by RUBEN Arguelles) Gastroesophageal reflux disease Hemangioma of liver Hypertension Irritable bowel syndrome Social History Social History Smoking status: Never smoker Second hand tobacco smoke exposure: Yes Alcohol intake: current Drinks per week: 2 Alcohol use details: Daily Substance use: never Substance use type: does not use Spiritual care concerns: No Meds Home Medications and Allergies Home Medications Medication Instructions Recorded Confirmed Type atorvastatin 10 mg tablet 10 mg PO DAILY 08/10/20 06/30/21 History duloxetine 20 mg capsule,delayed 30 mg PO BID 08/10/20 06/30/21 History release losartan 50 mg tablet 50 mg PO DAILY 08/10/20 06/30/21 History magnesium oxide 400 mg (241.3 mg 400 mg PO DAILY 08/10/20 06/30/21 History magnesium) tablet metoprolol succinate 50 mg 50 mg PO BID 08/10/20 06/30/21 History tablet,extended release 24 hr potassium chloride 20 mEq 20 meq PO BID 08/10/20 06/30/21 History tablet,extended release Allergies Allergy/AdvReac Type Severity Reaction Status Date / Time codeine AdvReac Mild Vomiting Verified 08/10/20 10:52 Vital Signs Vital Signs - 24 hr 06/30/21 16:47 06/30/21 18:10 06/30/21 20:00 Temperature 98.3 F 99.7 F H Pulse Rate 78 76 73 Respiratory Rate 16 16 20 Blood Pressure 173/97 H 155/80 H 152/86 H Pulse Oximetry 100 97 97 07/01/21 00:00 07/01/21 03:45 07/01/21 08:54 Temperature 100.1 F H 99.6 F Pulse Rate 69 78 76 Respiratory Rate 20 20 Blood Pressure 153/90 H 156/90 H Pulse Oximetry 98 96 Exam Narrative: GENERAL: Confused with Dysarthria , in no apparent distress. HEAD: normocephalic, atraumatic. EYES: PERRL. Sclera clear/white. Vision is grossly intact. EARS: External ears normal, auditory canals clear and without drainage, TMs normal w
[2021-07-01 13:03] LABS: Folic Acid 11.1 ng/mL (8.6->20)
[2021-07-01 13:09] LABS: Erythrocyte Sedimentation Rate 25 mm/hr (0-20)
[2021-07-01 13:10] LABS: Vitamin B12 97 pg/mL (193-986)
[2021-07-01 14:23] LABS: Alanine Aminotransferase 49 U/L (16-63); Albumin Level 3.7 g/dL (3.4-5.0); Alkaline Phosphatase 47 U/L (46-116); Ammonia 24 umol/L (11-32); Aspartate Amino Transferase 26 U/L (15-37); Bilirubin Direct 0.2 mg/dL (0-0.2); Bilirubin,Total 1.1 mg/dL (0.00-1.00); Creatine Kinase 102 U/L (39-308); Total Protein 7.7 g/dL (6.4-8.2)
[2021-07-01] MEDS: traZODone HCL 50 MG TABLET PO (20:52)
[2021-07-01] MEDS: chlordiazePOXIDE (*CRX) 25 MG CAPSULE PO (20:52)
[2021-07-02 05:04] LABS: Hematocrit 38.9 % (37.0-46.0); Hemoglobin 12.9 g/dL (12.4-15.3); Mean Corpuscular HGB Conc 33.2 g/dL (32.0-36.0); Mean Corpuscular Hemoglobin 32.5 pg (27.0-31.0); Platelet Count Result 166 K/mm3 (150-420); Red Blood Count 3.97 M/mm3 (4.70-6.10); Red Cell Distribution Width 12.1 % (11.6-14.4); White Blood Count 4.8 K/mm3 (4.8-10.8)
[2021-07-02 05:22] LABS: Alanine Aminotransferase 39 U/L (16-63); Albumin Level 3.3 g/dL (3.4-5.0); Alkaline Phosphatase 40 U/L (46-116); Anion Gap 9 mmol/L (8-16); Aspartate Amino Transferase 19 U/L (15-37); Bilirubin,Total 0.7 mg/dL (0.00-1.00); Blood Urea Nitrogen 13 mg/dL (7-18); Calcium 8.6 mg/dL (8.5-10.1); Carbon Dioxide 25 mmol/L (21-32); Chloride 105 mmol/L (98-108); Estimated CRCL calculation 64 ml/min; Estimated Glomerular Filt Rate > 60; Glucose 107 mg/dL (70-99); Magnesium 2.4 mg/dL (1.8-2.4); Osmolality Calculated 288 mOsm/kg (285-295); Potassium 4.2 mmol/L (3.5-5.1); Sodium 139 mmol/L (136-145); Total Protein 6.9 g/dL (6.4-8.2)
[2021-07-02 08:00] VITALS: BP 128/82; PULSE 74; RESP 17; TEMP 36.9; O2SAT 97
[2021-07-02] MEDS: PANTOPRAZOLE SODIUM IV 40 MG VIAL IV PUSH (08:28)
[2021-07-02 08:29] VITALS: PULSE 81
[2021-07-02] MEDS: MAGNESIUM OXIDE 400 MG TABLET PO (08:29)
[2021-07-02] MEDS: POTASSIUM CHLORIDE 20 MEQ TABLET PO ×2 (08:29→17:30)
[2021-07-02] MEDS: DULoxetine HCL 30 MG CAPSULE.DR PO ×2 (08:29→17:29)
[2021-07-02] MEDS: ASPIRIN 325 MG ENTERIC TABLET PO (08:29)
[2021-07-02] MEDS: METOPROLOL SUCCINATE EXT REL 50 MG TABCR PO ×2 (08:29→17:30)
[2021-07-02] MEDS: chlordiazePOXIDE (*CRX) 25 MG CAPSULE PO ×2 (08:29→20:57)
[2021-07-02] MEDS: ATORVASTATIN 10 MG TABLET PO (08:30)
[2021-07-02] MEDS: LOSARTAN POTASSIUM 50 MG TABLET 100 MG PO (08:30)
[2021-07-02] MEDS: THIAMINE HCL 100 MG TABLET PO (08:30)
[2021-07-02] MEDS: FOLIC ACID 0.4 MG TABLET PO (08:30)
[2021-07-02] MEDS: ENOXAPARIN 40 MG/0.4 ML SYRINGE SUB-Q (08:31)
--- NOTE | 2021-07-02 08:55 | PC.NURSE ---
Suha Wick called and left message for at [phone] regarding Speech Therapy Consult.
[2021-07-02] MEDS: CYANOCOBALAMIN INJ 1,000 MCG/ML VIAL 1000 MCG IM (10:24)
--- NOTE | 2021-07-02 11:22 | P.PN_ITS ---
Progress Note: A&P Assessment and Plan (1) Altered mental status: Code(s): R41.82 - Altered mental status, unspecified Status: Acute Assessment and Plan: * Possibly secondary to CVA versus TIA versus alcoholic withdrawal versus infection versus vitamin deficiency * Patient admits he is an alcoholic drinks 6-10 tall glasses of undiluted rum a day, has not had any alcohol within the last 2 days * Blood culture pending * Patient with low-grade fever receiving azithromycin and Rocephin, resolved * CT of the head no acute findings * Continue neurochecks * Carotid Doppler pending * Alcohol withdrawal symptoms protocol implemented * Patient receiving atorvastatin, aspirin * Ammonia level within normal limits vitamin B 12 deficient, folic acid within normal limits, thiamine pending (2) Hypomagnesemia: Code(s): E83.42 - Hypomagnesemia Status: Acute Assessment and Plan: * Possibly secondary to alcohol abuse * Magnesium 0.7>1.6>2.5>2.4 * Patient received 4 g of magnesium * Will continue to monitor (3) Alcohol abuse: Code(s): F10.10 - Alcohol abuse, uncomplicated Status: Acute Assessment and Plan: * Educated on cessation * Alcohol withdrawal protocol implemented * Continue neurochecks * Thiamine and folic acids started * Ammonia level CK, , thiamine, vitamin B1 within normal limits and B12 deficient (4) GERD (gastroesophageal reflux disease): Code(s): K21.9 - Gastro-esophageal reflux disease without esophagitis Status: Acute Assessment and Plan: * Continue Protonix (5) Hypertension: Code(s): I10 - Essential (primary) hypertension Status: Acute Assessment and Plan: * Stable * Losartan increased to 100 mg instead of 50 mg daily * Vital signs as ordered * Will adjust medication as needed (6) Elevated liver function tests: Code(s): R79.89 - Other specified abnormal findings of blood chemistry Status: Acute Assessment and Plan: * Secondary to alcohol abuse * AST58>38>39,>26>19 ALT 82>55>49>39 improving * Tbili 0.9>1.5>1.2>0.2 * Will continue to monitor and drain Subjective Date/time seen: 07/02/21 11:22 patient speech and cognition has much improved since yesterday. Patient and his note that he is at baseline today. Patient has no complaints. Patient was informed due to his alcohol use many of his vitamins are deficient he will need to discharge home with vitamin supplements. The patient denies SOB, CP, palpitation, extremity numbness, lightheadedness, dizziness, constipation, diarrhea, chills, or fever. Plan to discharge tomorrow after Doppler, PT OT and speech eval Review of Systems Review of Systems: A 14 organ system Review of Systems was performed and pertinent positives included in the HPI, otherwise remaining ROS is negative. Exam Narrative: GENERAL: Confused with Dysarthria , in no apparent distress. HEAD: normocephalic, atraumatic. EYES: PERRL. Sclera clear/white. Vision is grossly intact. EARS: External ears normal, auditory canals clear and without drainage, TMs normal without perforation. Hearing grossly intact. NOSE: External nose normal with no obvious nasal discharge, nares without redness, no rhinorrhea. THROAT: Mucous membranes moist, posterior pharynx clear. NECK: Neck supple, non-tender without lymphadenopathy, masses or thyromegaly. CARDIOVASCULAR: Regular rate and rhythm without murmurs, gallops, or rubs. RESPIRATORY: Clear to auscultation. Breath sounds equal bilaterally. No wheezes, rales, or rhonchi.
--- NOTE | 2021-07-02 11:22 | WPDPN ---
Progress Note: A&P Assessment and Plan (1) Altered mental status: Code(s): R41.82 - Altered mental status, unspecified Status: Acute Assessment and Plan: Possibly secondary to CVA versus TIA versus alcoholic withdrawal versus infection versus vitamin deficiency Patient admits he is an alcoholic drinks 6-10 tall glasses of undiluted rum a day, has not had any alcohol within the last 2 days Blood culture pending Patient with low-grade fever receiving azithromycin and Rocephin, resolved CT of the head no acute findings Continue neurochecks Carotid Doppler pending Alcohol withdrawal symptoms protocol implemented Patient receiving atorvastatin, aspirin Ammonia level within normal limits vitamin B 12 deficient, folic acid within normal limits, thiamine pending (2) Hypomagnesemia: Code(s): E83.42 - Hypomagnesemia Status: Acute Assessment and Plan: Possibly secondary to alcohol abuse Magnesium 0.7>1.6>2.5>2.4 Patient received 4 g of magnesium Will continue to monitor (3) Alcohol abuse: Code(s): F10.10 - Alcohol abuse, uncomplicated Status: Acute Assessment and Plan: Educated on cessation Alcohol withdrawal protocol implemented Continue neurochecks Thiamine and folic acids started Ammonia level CK, , thiamine, vitamin B1 within normal limits and B12 deficient (4) GERD (gastroesophageal reflux disease): Code(s): K21.9 - Gastro-esophageal reflux disease without esophagitis Status: Acute Assessment and Plan: Continue Protonix (5) Hypertension: Code(s): I10 - Essential (primary) hypertension Status: Acute Assessment and Plan: Stable Losartan increased to 100 mg instead of 50 mg daily Vital signs as ordered Will adjust medication as needed (6) Elevated liver function tests: Code(s): R79.89 - Other specified abnormal findings of blood chemistry Status: Acute Assessment and Plan: Secondary to alcohol abuse AST58>38>39,>26>19 ALT 82>55>49>39 improving Tbili 0.9>1.5>1.2>0.2 Will continue to monitor and drain Subjective Date/time seen: 07/02/21 11:22 patient speech and cognition has much improved since yesterday. Patient and his note that he is at baseline today. Patient has no complaints. Patient was informed due to his alcohol use many of his vitamins are deficient he will need to discharge home with vitamin supplements. The patient denies SOB, CP, palpitation, extremity numbness, lightheadedness, dizziness, constipation, diarrhea, chills, or fever. Plan to discharge tomorrow after Doppler, PT OT and speech eval Review of Systems Review of Systems: A 14 organ system Review of Systems was performed and pertinent positives included in the HPI, otherwise remaining ROS is negative. Exam Narrative: GENERAL: Confused with Dysarthria , in no apparent distress. HEAD: normocephalic, atraumatic. EYES: PERRL. Sclera clear/white. Vision is grossly intact. EARS: External ears normal, auditory canals clear and without drainage, TMs normal without perforation. Hearing grossly intact. NOSE: External nose normal with no obvious nasal discharge, nares without redness, no rhinorrhea. THROAT: Mucous membranes moist, posterior pharynx clear. NECK: Neck supple, non-tender without lymphadenopathy, masses or thyromegaly. CARDIOVASCULAR: Regular rate and rhythm without murmurs, gallops, or rubs. RESPIRATORY: Clear to auscultation. Breath sounds equal bilaterally. No wheezes, rales, or rhonchi. GASTROINTESTINAL: Abdomen soft, non-tender, nondistended. Bowel sounds are active. No hepato-splenomegaly, or palpable masses. No guarding. SKIN: warm, intact with no suspicious lesions or rash, good texture and turgor. NEURO: awake, with confusion alert to self once cued with Dysarthria . There were no other focal neurologic abnormalities. Steady gait EXTREMITIES: Normal range of motion. No edema. No calf tenderness. Nega
[2021-07-02 16:00] VITALS: BP 130/72; PULSE 62; RESP 18; TEMP 36.6; O2SAT 98
[2021-07-02 17:30] VITALS: PULSE 64
[2021-07-02] MEDS: traZODone HCL 50 MG TABLET PO (20:57)
[2021-07-02 23:05] VITALS: BP 133/72; PULSE 58; RESP 18; TEMP 36.9; O2SAT 97
[2021-07-03 05:21] LABS: Hematocrit 38.2 % (37.0-46.0); Hemoglobin 12.7 g/dL (12.4-15.3); Mean Corpuscular HGB Conc 33.2 g/dL (32.0-36.0); Mean Corpuscular Hemoglobin 33.2 pg (27.0-31.0); Mean Platelet Volume 10.3 fl (8.7-11.0); Platelet Count Result 169 K/mm3 (150-420); Red Blood Count 3.82 M/mm3 (4.70-6.10); Red Cell Distribution Width 12.1 % (11.6-14.4); White Blood Count 5.1 K/mm3 (4.8-10.8)
[2021-07-03 05:36] LABS: Alanine Aminotransferase 39 U/L (16-63); Albumin Level 3.3 g/dL (3.4-5.0); Alkaline Phosphatase 38 U/L (46-116); Anion Gap 9 mmol/L (8-16); Aspartate Amino Transferase 20 U/L (15-37); Bilirubin,Total 0.5 mg/dL (0.00-1.00); Blood Urea Nitrogen 15 mg/dL (7-18); Calcium 8.7 mg/dL (8.5-10.1); Carbon Dioxide 25 mmol/L (21-32); Chloride 105 mmol/L (98-108); Estimated CRCL calculation 63 ml/min; Estimated Glomerular Filt Rate > 60; Glucose 108 mg/dL (70-99); Osmolality Calculated 289 mOsm/kg (285-295); Potassium 4.5 mmol/L (3.5-5.1); Sodium 139 mmol/L (136-145); Total Protein 6.9 g/dL (6.4-8.2)
[2021-07-03 08:00] VITALS: BP 132/67; PULSE 66; RESP 16; TEMP 36.3; O2SAT 97
--- NOTE | 2021-07-03 08:14 | P.DS_ITS ---
DS: Admitting Diagnosis Discharge Date 07/03/2021 Admitting Diagnosis Encephalopathy(AMS), withdrawal symptoms, rule out TIA/cva DS: Discharge Diagnosis Discharge Diagnosis (1) Altered mental status: Code(s): R41.82 - Altered mental status, unspecified Status: Acute Assessment and Plan: * Possibly secondary to CVA versus TIA versus alcoholic withdrawal versus infection versus vitamin deficiency more than likely withdrawal symptoms since he has returned back to baseline * Patient admits he is an alcoholic drinks 6-10 tall glasses of undiluted rum a day, has not had any alcohol within the last 2 days * Blood culture pending * Patient with low-grade fever receiving azithromycin and Rocephin, resolved * CT of the head no acute findings * Continue neurochecks * Carotid Doppler pending * Alcohol withdrawal symptoms protocol implemented * Patient receiving atorvastatin, aspirin * Ammonia level within normal limits vitamin B 12 deficient, folic acid within normal limits, thiamine pending * Carotid Dopplers<50% stenosis in the right internal carotid artery<50% stenosis in the left internal carotid artery. (2) Hypomagnesemia: Code(s): E83.42 - Hypomagnesemia Status: Acute Assessment and Plan: * Possibly secondary to alcohol abuse * Magnesium 0.7>1.6>2.5>2.4>2.0 * Patient received 4 g of magnesium * Will continue to monitor (3) Alcohol abuse: Code(s): F10.10 - Alcohol abuse, uncomplicated Status: Acute Assessment and Plan: * Educated on cessation * Alcohol withdrawal protocol implemented * Continue neurochecks * Thiamine and folic acids started * Ammonia level CK, , thiamine, vitamin B1 within normal limits and B12 deficient (4) GERD (gastroesophageal reflux disease): Code(s): K21.9 - Gastro-esophageal reflux disease without esophagitis Status: Acute Assessment and Plan: * Continue Protonix (5) Hypertension: Code(s): I10 - Essential (primary) hypertension Status: Acute Assessment and Plan: * Stable * Losartan increased to 100 mg instead of 50 mg daily * Vital signs as ordered * Will adjust medication as needed (6) Elevated liver function tests: Code(s): R79.89 - Other specified abnormal findings of blood chemistry Status: Acute Assessment and Plan: * Secondary to alcohol abuse * AST58>38>39,>26>19 ALT 82>55>49>39 improving * Tbili 0.9>1.5>1.2>0.2 * Will continue to monitor and drain DS: Summary Hospital Course Reason for hospitalization: Encephalopathy(AMS) Hospital Course: this is a 66-year-old male who presented to our emergency department with altered mental status. Patient has a past medical history GERD, hypertension, irritable bowel syndrome, and Hemangioma of liver. Patient was a poor historian day of admission Patient did note that 1 night he went to sleep and when he woke up he felt different. He was not able to describe how he felt different. During admission assessment patient displayed dysarthria with confusion this day of discharge patient is at baseline he is alert and orientated x4 with normal speech. . Patient appears to be cognitively impaired day of admission other neurological assessment negative. Patient and later admits to excessive alcohol use patient notes that he drinks 6-8 tall glasses of undiluted Rum daily. He also notes that 2 days prior to admission he cold turkey stop drinking. More than likely patient cognitive impairment was caused by withdrawal symptoms. Patient was also found to be vitamin B12 deficient. Jluis jackson will discharge home with
--- NOTE | 2021-07-03 08:14 | PM.DS ---
DS: Admitting Diagnosis Discharge Date 07/03/2021 Admitting Diagnosis Encephalopathy(AMS), withdrawal symptoms, rule out TIA/cva DS: Discharge Diagnosis Discharge Diagnosis (1) Altered mental status: Code(s): R41.82 - Altered mental status, unspecified Status: Acute Assessment and Plan: Possibly secondary to CVA versus TIA versus alcoholic withdrawal versus infection versus vitamin deficiency more than likely withdrawal symptoms since he has returned back to baseline Patient admits he is an alcoholic drinks 6-10 tall glasses of undiluted rum a day, has not had any alcohol within the last 2 days Blood culture pending Patient with low-grade fever receiving azithromycin and Rocephin, resolved CT of the head no acute findings Continue neurochecks Carotid Doppler pending Alcohol withdrawal symptoms protocol implemented Patient receiving atorvastatin, aspirin Ammonia level within normal limits vitamin B 12 deficient, folic acid within normal limits, thiamine pending Carotid Dopplers<50% stenosis in the right internal carotid artery<50% stenosis in the left internal carotid artery. (2) Hypomagnesemia: Code(s): E83.42 - Hypomagnesemia Status: Acute Assessment and Plan: Possibly secondary to alcohol abuse Magnesium 0.7>1.6>2.5>2.4>2.0 Patient received 4 g of magnesium Will continue to monitor (3) Alcohol abuse: Code(s): F10.10 - Alcohol abuse, uncomplicated Status: Acute Assessment and Plan: Educated on cessation Alcohol withdrawal protocol implemented Continue neurochecks Thiamine and folic acids started Ammonia level CK, , thiamine, vitamin B1 within normal limits and B12 deficient (4) GERD (gastroesophageal reflux disease): Code(s): K21.9 - Gastro-esophageal reflux disease without esophagitis Status: Acute Assessment and Plan: Continue Protonix (5) Hypertension: Code(s): I10 - Essential (primary) hypertension Status: Acute Assessment and Plan: Stable Losartan increased to 100 mg instead of 50 mg daily Vital signs as ordered Will adjust medication as needed (6) Elevated liver function tests: Code(s): R79.89 - Other specified abnormal findings of blood chemistry Status: Acute Assessment and Plan: Secondary to alcohol abuse AST58>38>39,>26>19 ALT 82>55>49>39 improving Tbili 0.9>1.5>1.2>0.2 Will continue to monitor and drain DS: Summary Hospital Course Reason for hospitalization: Encephalopathy(AMS) Hospital Course: this is a 66-year-old male who presented to our emergency department with altered mental status. Patient has a past medical history GERD, hypertension, irritable bowel syndrome, and Hemangioma of liver. Patient was a poor historian day of admission Patient did note that 1 night he went to sleep and when he woke up he felt different. He was not able to describe how he felt different. During admission assessment patient displayed dysarthria with confusion this day of discharge patient is at baseline he is alert and orientated x4 with normal speech. . Patient appears to be cognitively impaired day of admission other neurological assessment negative. Patient and later admits to excessive alcohol use patient notes that he drinks 6-8 tall glasses of undiluted Rum daily. He also notes that 2 days prior to admission he cold turkey stop drinking. More than likely patient cognitive impairment was caused by withdrawal symptoms. Patient was also found to be vitamin B12 deficient. Patient will discharge home with vitamin B12, thiamine in folic acid. Patient is at baseline he agrees that he is ready for discharge. The patient denies SOB, CP, palpitation, extremity numbness, lightheadedness, dizziness, constipation, diarrhea, chills, or fever.. Patient will also go home with a couple days of Librium to assist with withdrawal symptoms. He does deny any withdrawal symptoms at this time but he
[2021-07-03] MEDS: ENOXAPARIN 40 MG/0.4 ML SYRINGE SUB-Q (08:36)
[2021-07-03] MEDS: PANTOPRAZOLE SODIUM IV 40 MG VIAL IV PUSH (08:37)
[2021-07-03] MEDS: DULoxetine HCL 30 MG CAPSULE.DR PO (08:40)
[2021-07-03] MEDS: ASPIRIN 325 MG ENTERIC TABLET PO (08:41)
[2021-07-03] MEDS: chlordiazePOXIDE (*CRX) 25 MG CAPSULE PO (08:41)
[2021-07-03] MEDS: POTASSIUM CHLORIDE 20 MEQ TABLET PO (08:41)
[2021-07-03 08:42] VITALS: PULSE 85
[2021-07-03] MEDS: THIAMINE HCL 100 MG TABLET PO (08:42)
[2021-07-03] MEDS: LOSARTAN POTASSIUM 50 MG TABLET 100 MG PO (08:42)
[2021-07-03] MEDS: METOPROLOL SUCCINATE EXT REL 50 MG TABCR PO (08:42)
[2021-07-03] MEDS: ATORVASTATIN 10 MG TABLET PO (08:42)
[2021-07-03] MEDS: MAGNESIUM OXIDE 400 MG TABLET PO (08:43)
[2021-07-03] MEDS: methocarbamoL 750 MG TABLET PO (08:43)
[2021-07-03] MEDS: FOLIC ACID 0.4 MG TABLET PO (08:44)
[2021-07-03] MEDS: CYANOCOBALAMIN INJ 1,000 MCG/ML VIAL 1000 MCG IM (10:10)
--- NOTE | 2021-07-03 10:55 | PC.NURSE ---
Patient discharged from unit at 1055. Ambulated to [facility] accompanied by database report writer and nurse. Discharge instructions given to patient. Patient voiced understanding. Personal belongings sent home with patient.
--- NOTE | 2021-07-07 14:33 | PC.NURSE ---
Unable to contact for discharge call back.
[2021-07-07 15:09] LABS: Methylmalonic Acid 172 nmol/L (87-318)
== END 2021-07-03 10:55 | disposition home or self-care (01) | DRG 948 ==
LOC: CHSED 16:25 → CHS2ND 17:58
PROVIDERS: Nurse Practitioner; Admitting Provider Internal Medicine; Emergency Provider Family Medicine; PCP Internal Medicine; Visit Provider Internal Medicine
DX: R41.82 Altered mental status, unspecified (principal); F10.239 Alcohol dependence with withdrawal, unspecified; E53.8 Deficiency of other specified B group vitamins; E83.42 Hypomagnesemia; I65.23 Occlusion and stenosis of bilateral carotid arteries; I10 Essential (primary) hypertension; K21.9 Gastro-esophageal reflux disease without esophagitis; K58.9 Irritable bowel syndrome, unspecified; D18.03 Hemangioma of intra-abdominal structures; R79.89 Other specified abnormal findings of blood chemistry
CPT/HCPCS: 36415; 70450; 70551; 71045; 80053; 80076; 80307; 81001; 82140; 82550; 82607; 82746; 83605; 83735; 83921; 84425; 84443; 84484; 85025; 85027; 85610; 85652; 86140; 87040; 87426; 93005; 93880; 96361; 96365; 96366; 96367; 96372; 96375; 97161; 97165; 99285; A9270; C9113; C9803; G0378; J0456; J0696; J1650; J3420; J3475; J7030

== ENCOUNTER 2023-04-04 11:56 | Emergency (ER) | payer MEDICARE, OTHER, SELFPAY ==
[2023-04-04 11:56] VITALS: BP 115/72; PULSE 80; RESP 18; TEMP 36.5; O2SAT 97
[2023-04-04 12:05] VITALS: O2SAT 97
--- NOTE | 2023-04-04 12:10 | ED.URI ---
HPI - URI/Sore Throat General Chief Complaint: Upper Respiratory Infection Stated Complaint: congestion Time Seen by Provider: 04/04/23 12:10 Source: patient and family Mode of arrival: ambulatory Limitations: no limitations History of Present Illness HPI Narrative: This is a 67-year-old male with no significant respiratory history no COPD non spastic her mother presents with a 3 week history of cough that is nonproductive with some nasal congestion and sinus pressure with no audible wheezing no fever chills no chest pain no shortness of breath. MD elicited complaint: cough, nasal congestion and sinus pain Onset (ago): week(s) Severity: mild Related Data Home Medications Medication Instructions Recorded Confirmed atorvastatin 10 mg tablet 10 mg PO DAILY 08/10/20 06/30/21 duloxetine 20 mg capsule,delayed 30 mg PO BID 08/10/20 06/30/21 release magnesium oxide 400 mg (241.3 mg 400 mg PO DAILY 08/10/20 06/30/21 magnesium) tablet metoprolol succinate 50 mg 50 mg PO BID 08/10/20 06/30/21 tablet,extended release 24 hr potassium chloride 20 mEq 20 meq PO BID 08/10/20 06/30/21 tablet,extended release Allergies Allergy/AdvReac Type Severity Reaction Status Date / Time codeine AdvReac Mild Vomiting Verified 04/04/23 12:02 Review of Systems Review of Systems: All systems reviewed & are unremarkable except as noted in HPI and below PMFSH Past Medical History Medical History Gastroesophageal reflux disease Hemangioma of liver Hypertension Irritable bowel syndrome Social History Social History Smoking status: Never smoker Second hand tobacco smoke exposure: Yes Alcohol intake: current Drinks per week: 2 Alcohol use details: Daily Substance use: never Substance use type: does not use Living arrangements: with family Spiritual care concerns: No Exam Const: General: healthy appearing and no acute distress Nutritional Appearance: well nourished Orientation/consciousness: patient oriented x3 HENMT: Other: Frontal and maxillary sinus tenderness with palpation with bilateral ear dullness Eyes: Conjunctivae: conjunctivae normal Chest: Chest palpation & inspection: normal inspection of the chest Resp: Effort & Inspection: normal respiratory effort Auscultation: clear to auscultation bilaterally Cardio: Rate: regular rate Rhythm: regular rhythm GI: GI Palp: Yes Soft to palpation Extrem: General: normal to inspection and no pedal edema Psych: Mental Status: mental status grossly normal Affect: normal affect Course Course Emergency Course: patient O2 sats 97% on room air with temperature he is afebrile with no audible wheezing will treat with a Z-Eugene and medicine for his cough and congestion and advised to follow with primary if symptoms persist or worsen. Vital Signs Vital signs: Vital Signs Temperature 36.5 C 04/04/23 11:56 Pulse Rate 80 04/04/23 11:56 Respiratory Rate 18 04/04/23 11:56 Blood Pressure 115/72 04/04/23 11:56 Pulse Oximetry 97 04/04/23 11:56 Oxygen Delivery Room Air 04/04/23 11:56 Temperature 36.5 C 04/04/23 11:56 Pulse Rate 80 04/04/23 11:56 Respiratory Rate 18 04/04/23 11:56 Blood Pressure 115/72 04/04/23 11:56 Pulse Oximetry 97 04/04/23 12:05 Oxygen Delivery Room Air 04/04/23 12:05 Critical Care Time Critical Care Time Critical Care Time: No Discharge Plan Discharge Clinical Impression: Sinusitis Patient Disposition: Home, Self-Care Condition: Stable Instructions: Antibiotic Form Additional Instructions: Follow up with primary care physician if symptoms persist or worsen. Take medicine as prescribed. Advised to take Claritin [id number] along with prescribed medication. Prescriptions: New azithromycin [Zithromax Z-Eugene] 250 mg tablet See Rx Instructio
[2023-04-04 12:23] VITALS: BP 115/72; PULSE 80; RESP 18; TEMP 36.5; O2SAT 97
== END 2023-04-04 12:26 | disposition home or self-care (01) ==
LOC: CHSED 12:15
PROVIDERS: Emergency Provider Emergency Medicine; PCP Internal Medicine
DX: J32.9 Chronic sinusitis, unspecified (principal); I10 Essential (primary) hypertension
CPT/HCPCS: 99283

== ENCOUNTER 2023-04-10 10:15 | Outpatient (CLI) | payer MEDICARE, OTHER, SELFPAY ==
--- NOTE | ~2023-04-10 | XR_ITS ---
EXAMINATION: XR chest 2V DATE: 04/10/2023 10:31 INDICATION: Cough TECHNIQUE: PA and lateral views of the chest are obtained. COMPARISON: 06/30/2021 FINDINGS: The lungs are free of acute opacities. There are chronic suprahilar opacities without epstein e. No pleural effusion or pneumothorax. The cardiomediastinal silhouette is normal. There is moderate thoracic spondylosis. Surgical clips in the upper abdomen on the lateral view are likely from prior cholecystectomy. IMPRESSION: 1. No acute cardiopulmonary abnormality. Reviewed, dictated and finalized at location B. MCORN SCRAPER
== END 2023-04-10 10:16 | disposition home or self-care (01) ==
PROVIDERS: PCP Internal Medicine; Visit Provider Internal Medicine
DX: I10 Essential (primary) hypertension (principal); E78.5 Hyperlipidemia, unspecified; R05.9 Cough, unspecified
CPT/HCPCS: 71046

== ENCOUNTER 2024-04-29 10:21 | Outpatient (CLI) | payer MEDICARE, SELFPAY ==
[2024-04-29 11:08] LABS: Add Urine Microscopic? YES; Appearance Urine Clear (Clear); Bilirubin Urine Negative (Negative); Blood Urine Trace-intact (Negative); Color Urine Light Yellow (Yellow); Glucose Urine UA Negative (Negative); Hematocrit 46.3 % (37.0-46.0); Hemoglobin 15.1 g/dL (12.4-15.3); Ketones Urine Negative (Negative); Leukocyte Esterase Ur 3+ (Negative); Mean Corpuscular HGB Conc 32.6 g/dL (32-36); Mean Corpuscular Hemoglobin 31.3 pg (27.0-31.0); Mean Corpuscular Volume 96.1 fL (78.0-102.0); Mean Platelet Volume 9.6 fl (8.7-11.0); Nitrate Urine Positive (Negative); Platelet Count Result 210 K/mm3 (150-420); Protein Urine Negative (Negative); Red Blood Count 4.82 M/mm3 (4.70-6.10); Red Cell Distribution Width 12.2 % (11.6-14.4); Specific Grav Ur 1.015 (1.010-1.020); Urobilinogen Urine 0.2 mg/dL (0.2-1.0); White Blood Count 7.8 K/mm3 (4.8-10.8); pH Urine 5.5 (5.0-8.0)
[2024-04-29 11:42] LABS: RBC Urine None seen /hpf (0-2); WBC Urine 51-75 /hpf (0-3)
[2024-04-29 11:43] LABS: Bacteria Urine 3+ /hpf
[2024-04-29 12:13] LABS: Alanine Aminotransferase 34 U/L (16-63); Albumin Level 4.1 g/dL (3.4-5.0); Alkaline Phosphatase 47 U/L (46-116); Anion Gap 8 mmol/L (4-12); Aspartate Amino Transferase 28 U/L (15-37); Bilirubin,Total 1.5 mg/dL (0.00-1.00); Blood Urea Nitrogen 22 mg/dL (7-18); Calcium 9.2 mg/dL (8.5-10.1); Carbon Dioxide 29 mmol/L (21-32); Chloride 103 mmol/L (98-108); Cholesterol 293 mg/dL (0-200); Estimated Glomerular Filt Rate 54; Glucose 104 mg/dL (70-99); HDL Direct 60 mg/dL (40-60); LDL Cholesterol Calculated 213 mg/dL (<130); Magnesium 1.9 mg/dL (1.8-2.4); Osmolality Calculated 293 mOsm/kg (285-295); Potassium 4.7 mmol/L (3.5-5.1); Sodium 140 mmol/L (136-145); Thyroid Stimulating Hormone 3.61 uIU/mL (0.36-3.74); Total Protein 7.6 g/dL (6.4-8.2); Triglycerides 99 mg/dL (0-150)
[2024-04-29 12:14] LABS: CRP < 0.5 mg/dL (0.0-0.9)
== END 2024-04-29 10:22 | disposition home or self-care (01) ==
LOC: CHSLAB 10:24
PROVIDERS: PCP Internal Medicine; Visit Provider Internal Medicine
DX: I10 Essential (primary) hypertension (principal); E78.5 Hyperlipidemia, unspecified; F10.20 Alcohol dependence, uncomplicated
CPT/HCPCS: 36415; 80053; 80061; 81001; 83735; 84443; 85027; 86140

== ENCOUNTER 2024-05-21 07:41 | Outpatient (CLI) | payer MEDICARE, SELFPAY ==
--- NOTE | ~2024-05-21 | CT_ITS ---
EXAMINATION: CT abdomen pelvis wo con DATE: 05/21/2024 08:28 INDICATION: Acute renal failure. Microhematuria. TECHNIQUE: Computed tomography (CT) of the abdomen and pelvis was performed without intravenous contr ast. Automated exposure control and iterative reconstruction technique were employed. The dose-length product was 204.28 mGy-cm. COMPARISON: CT abdomen and pelvis 10/25/12 FINDINGS: The visualized portions of the lung bases demonstrate a few nodules measuring up to 4 mm, l ikely benign. No pleural effusion. The heart size is normal. No pericardial effusion. The liver and s pleen are normal. There are changes of cholecystectomy. The pancreas, adrenal glands, and right kidne y are normal. There is severe left hydronephrosis and hydroureter. Left kidney is normal in size. The bladder wall is trabeculated. The prostate is mildly enlarged. There is no urolithiasis. There is di verticulosis of the colon without evidence of diverticulitis. The appendix is normal. There are no pa thologically enlarged lymph nodes. There is no free intraperitoneal fluid. There is severe lumbar spo ndylosis and moderate residue spondylosis. IMPRESSION: 1. Severe left hydronephrosis and hydroureter. 2. Trabeculated bladder wall. Reviewed, dictated and finalized at location A. THERAPIST
== END 2024-05-21 07:42 | disposition home or self-care (01) ==
PROVIDERS: PCP Internal Medicine; Visit Provider Internal Medicine
DX: N17.9 Acute kidney failure, unspecified (principal); R31.9 Hematuria, unspecified; N13.30 Unspecified hydronephrosis; N13.4 Hydroureter
CPT/HCPCS: 74176

== ENCOUNTER 2024-07-14 14:37 | Outpatient (CLI) | payer MEDICARE, SELFPAY ==
--- NOTE | ~2024-07-14 | XR_ITS ---
XR hand LT min 3V 07/14/2024 14:59 Indication: Left hand pain Procedure: 3 views left hand Comparison: No prior studies for comparison. Findings: There is anatomic alignment. There is mild polyarticular osteoarthritis. No erosive changes . No fracture or traumatic malalignment. Impression: 1: Mild polyarticular osteoarthritis. Reviewed, dictated and finalized at location A. Impression: 1: Mild polyarticular osteoarthritis.
[2024-07-14 14:57] LABS: Basophils Absolute Auto 0.03 K/mm3 (0.00-0.10); Basophils Percent Auto 0.3 % (0.0-1.0); Eosinophils Absolute Auto 0.22 K/mm3 (0.02-0.50); Eosinophils Percent Auto 2.1 % (1.0-6.0); Hemoglobin 13.1 g/dL (12.4-15.3); Immature Granulocyte Absolute 0.04 K/mm3 (0.00-0.00); Immature Granulocyte Percent A 0.4 % (0.0-0.0); Lymphocytes Absolute Auto 2.49 K/mm3 (1.10-4.50); Lymphocytes Percent Auto 23.5 % (18.0-42.0); Mean Corpuscular HGB Conc 32.8 g/dL (32-36); Mean Corpuscular Hemoglobin 30.5 pg (27.0-31.0); Mean Corpuscular Volume 93.2 fL (78.0-102.0); Monocytes Absolute Auto 0.85 K/mm3 (0.10-0.90); Neutrophils Absolute Auto 6.95 K/mm3 (1.70-7.20); Neutrophils Percent Auto 65.7 % (50.0-70.0); Platelet Count Result 179 K/mm3 (150-420); Red Blood Count 4.29 M/mm3 (4.70-6.10); Red Cell Distribution Width 12.2 % (11.6-14.4); White Blood Count 10.6 K/mm3 (4.8-10.8)
[2024-07-14 15:29] LABS: Alanine Aminotransferase 54 U/L (16-63); Albumin Level 3.8 g/dL (3.4-5.0); Alkaline Phosphatase 63 U/L (46-116); Anion Gap 10 mmol/L (4-12); Aspartate Amino Transferase 33 U/L (15-37); Bilirubin,Total 1.2 mg/dL (0.00-1.00); Blood Urea Nitrogen 22 mg/dL (7-18); Calcium 8.8 mg/dL (8.5-10.1); Carbon Dioxide 26 mmol/L (21-32); Chloride 102 mmol/L (98-108); Estimated Glomerular Filt Rate 54; Glucose 112 mg/dL (70-99); Osmolality Calculated 290 mOsm/kg (285-295); Potassium 4.3 mmol/L (3.5-5.1); Sodium 138 mmol/L (136-145); Total Protein 7.4 g/dL (6.4-8.2)
--- OUTSIDE RECORDS SUMMARY | 2024-07-14 17:11 | XMS_ITS | Clinical Summary ---
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[employer] Gender Identity Not on file Sexual Orientation Not on file Plan of Treatment Health Maintenance Due Date Last Done Comments Colorectal Cancer Screening Colonoscopy (10 Years) 1955 Hepatitis C 1971 DTaP, Tdap and Td Vaccines ( 1 - Tdap) 1972 Zoster Vaccines (1 of 2) 2003 Pneumococcal Vaccine: 65+ Ye ars (1 of 1 - PCV) 2018 COVID-19 Vaccine ( - 2023-2 5 season) 2023 Influenza Adult (#1) 2024 RSV Immunization or 60+ Years (1 - 1-dose 75+ series) 2028 Meningococcal B Vaccine Aged Out No l onger eligible based on patient's age to complete this topic Meningococcal Vaccine Aged Out No scotty dane eligible based on patient's age to complete this topic RSV Immunizations Under 20 Months Aged Out No longer eligible based on patient's age to complete this topic
--- OUTSIDE RECORDS SUMMARY | 2024-07-14 17:11 | XMS_ITS | Clinical Summary ---
Author Organization [facility] Address [address] [place] [address] Phone Care Team Providers Care Physician General Internal Medicine Name Role Phone Romulo Andre MD Primary Care Provider [phone] Peng Brooks MD Unavailable Encounters Date Type Department Care Team Description 06/19/2024 1:20 PM PORTRAIT PAINTER - 06/19/2024 11:59 PM PORTRAIT PAINTER Hospital Encounter [facility] Radiology Resources [address] [place] [address] Provider, Not On File Discharge Disposition: Discharged to home or Selfcare 06/19/2024 Telephone [facility] [address] [place] [phone] Peng Brooks MD 06/10/2024 9:15 AM PORTRAIT PAINTER Office Visit [facility] [address] [place] [phone] Peng Brooks MD Hydroureteronephrosis (Primary Dx); Prostate cancer screening; Other hydronephrosis Discharge Disposition: Discharged to home or Selfcare 06/10/2024 Travel from Last 3 Months Social History Tobacco Use Types Packs/Day Years Used Date Smoking Tobacco: Never Assessed Sex and Gender Information Value Date Recorded Sex Assigned at Not on file Legal Sex Male 11:46 AM PORTRAIT PAINTER Gender Identity Not on file Sexual Orientation Not on file Last Filed Vital Signs Vital Sign Reading Time Taken Comments Blood Pressure 167/94 06/10/2024 8:35 AM PORTRAIT PAINTER Pulse 58 06/10/2024 8:35 AM PORTRAIT PAINTER Temperature - - Respiratory Rate 16 06/10/2024 8:35 AM PORTRAIT PAINTER Oxygen Saturation 98% 06/10/2024 8:35 AM PORTRAIT PAINTER Inhaled Oxygen Concentration - - Weight 76.2 kg (168 lb) 06/10/2024 8:35 AM PORTRAIT PAINTER Height 175.3 cm (5' 9 ) 06/10/2024 8:35 AM PORTRAIT PAINTER Body Mass Index 24.81 06/10/2024 8:35 AM PORTRAIT PAINTER Plan of Treatment Upcoming Encounters Date Type Department Care Team (Late st Contact Info) Description 07/22/2024 10:45 AM CDT Office Visit [facility] [address] [place] [address] Peng Brooks MD [address] [facility], [address] [address] Health Maintenance Due Date Last Done Comments Hepatitis C Virus (HCV) Screening 1955 Colonoscopy 1998 Colorectal Cancer Screening 1998 Cologuard 2003 Immunochemical Fecal Occult Blood 2003 SARS-COV-2 Immunization ( season) 2023 03/20/2022, 11/20/2021, 03/15/2021, Additional history exists Respiratory Syncytial Virus (RSV) Immunization (Adult) (1 - 1-dose 75+ series) 2028 Pneumococcal Immunization (50+ years) Completed 06/02/2020, 02/20/2019 TdaP Immunization Completed 03/20/2022 Zoster Immunization Completed 01/10/2023, Influenza Immunization Completed , 01/10/2023, 03/02/2022, Additional history exists Hepatitis B Immunization Aged Out No longer eligible based on patient's age to complete this topic Meningococcal Immunization (ACWY) Aged Out No longer eligible based on patient's age to complete this topic Rotavirus Immunization Aged Out No lo nger eligible based on patient's age to complete this topic Procedures Procedure Name Priority Date/Time Associated Diagnosis Comments CT REFERENCE IMAGES FOR IMAGE IMPORT Routine 06/19/2024 1:20 PM PORTRAIT PAINTER PSA SCREEN Routine 06/10/2024 10:03 AM PORTRAIT PAINTER Hydroureteronephros is Prostate cancer screening ESTHER,POST-VOID RES,US,NON-IMAGING Routine 06/10/2024 9:15 AM PORTRAIT PAINTER Hydroureteronephros is POCT UA AUTOMATED W/O MICRO Routine 06/10/2024 8:37 AM PORTRAIT PAINTER Hydroureteronephros is from Last 3 Months Results * CT REFERENCE IMAGES FOR IMAGE IMPORT (06/19/2024 1:20 PM PORTRAIT PAINTER) us Not On File Provider IMG CT ORDERABLES Final Res ult * PSA SCREEN (06/10/2024 10:03 AM PORTRAIT PAINTER) PSA SCREEN, TOTAL 0.51 <4.00 ng/mL 06/10/2024 11:01 AM PORTRAIT PAINTER [facility] Blood Venipuncture / Unknown 06/10/2024 10:03 AM PORTRAIT PAINTER 06/10/2024 10:13 AM PORTRAIT PAINTER Narrative [facility] - 06/10/2024 11:01 AM PORTRAIT PAINTER The ALINITY Total PSA assay is a Chemiluminescent Microparticle Immunoassay (CMIA) for the quantitative determination of total PSA (both free PSA and PSA complexed to [id number]) in human serum. Total PSA values obtained with different assay methods, including Gibbs PSA assays, cannot be used interchangeably. us Peng Brooks MD CHEMISTRY ORDERABLES Final Resul t [facility] [address] [place] [address] * ESTHER,POST-VOID RES,US,NON-IMAGING (06/10/2024 9:15 AM PORTRAIT PAINTER) Narrative Eileen Collazo RMA - 06/10/2024 9:15 AM PORTRAIT PAINTER Eileen Collazo RMA 06/10/2024 11:19 AM POCT Bladder Scan collected per standing order of Dr. Brooks on 06/10/2024 PVR= 94 ML Peng Brooks MD [place] - SURGERY Final Result * POCT UA AUTOMATED W/O MICRO (06/10/2024 8:37 AM PORTRAIT PAINTER) POC UA SPECIFIC GRAVITY 1.015 URINE PH 5.0 5.0 - 9.0 POC URINE LEUKOCYTES Negative Negative Denzel/uL POC URINE NITRITE Negative Negative POC URINE PROTEIN Negative Negative mg/dL POC URINE GLUCOSE Norm Negative, Norm mg/dL POC URINE KETONE Negative Negative mg/dL POC URINE UROBILINOGEN Norm Norm, 0.2 E.U./dL (mg/dL), 1 E.U./dL (mg/dL) POC URINE BILIRUBIN Negative Negative mg/dL POC URINE BLOOD INSTRUMENT Negative Negative Yan/uL POC URINE COLOR Yellow POC URINE CLARITY Clear Urine 06/10/2024 8:37 AM PORTRAIT PAINTER Peng Brooks MD POINT OF CARE TESTING (MANUAL) F inal Result from Last 3 Months Insurance MEDICARE C [facility] on file Care Teams Physician General Internal Medicine Relationship Specialty Start Date End Date Romulo Andre MD [address] [place] [address] PCP - General Internal Medicine 06/10/24 Peng Brooks MD [address] [address] Consulting Physician Urology 06/10/24
--- OUTSIDE RECORDS SUMMARY | 2024-07-14 17:11 | XMS_ITS | Encounter Summary ---
Author Organization [facility] Address [address] 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 ER ENCLOSURE INSTALLER * Telephone Encounter - Catia Ross - 06/19/2024 10:40 AM CST Cd disk of Ct abd/pelvis sent to radiology to be uploaded in pts chart. Please review. ER ENCLOSURE INSTALLER documented in this encounter Plan of Treatment Upcoming Encounters Date Type Department Care Team (Late st Contact Info) Description 07/22/2024 10:45 AM CDT Office Visit [facility] [address] [place] [phone] Peng Brooks MD [address] [phone] documented as of this encounter Visit Diagnoses Not on filedocumented in this encounter Care Teams Acquisition Marketing Coordinator Relationship Specialty Start Date End Date Romulo Andre MD [address] [place] [address] PCP - General Internal Medicine 06/10/24 Peng Brooks MD [address]2 [facility] [address] [place] [phone] Consulting Physician Urology 06/10/24 documented as of this encounter
== END 2024-07-14 14:38 | disposition home or self-care (01) ==
LOC: CHSLAB 14:42
PROVIDERS: PCP Internal Medicine; Visit Provider Nurse Practitioner Family
DX: M79.89 Other specified soft tissue disorders (principal); W55.01XA Bitten by cat, initial encounter; M19.042 Primary osteoarthritis, left hand
CPT/HCPCS: 36415; 73130; 80053; 85025

== ENCOUNTER 2024-11-27 14:53 | Emergency (ER) | payer MEDICARE, SELFPAY ==
[2024-11-27] VITALS (19 sets, daily range): BP systolic 117–161; BP diastolic 53–124; PULSE 78–112; RESP 16–20; TEMP 36.4; O2SAT 96–100
--- NOTE | ~2024-11-27 | CT_ITS ---
CLINICAL INDICATION: Viral-type symptoms urinary tract infection COMPARISON: 05/21/2024 and dating back to 10/26/2019. TECHNIQUE: Multiple contiguous axial images of the abdomen and pelvis were performed without the admi nistration of intravenous contrast The dose-length product (DLP) was 334.40 mGy-cm. Automated exposure control and iterative reconstruction technique were employed. FINDINGS/OBSERVATIONS: Visualized lower thorax: The bilateral lung bases are clear. The heart is of normal size, without pericardial effusion. Small hiatal hernia is present. Liver: The liver demonstrates homogeneous attenuation and is not enlarged. Gallbladder and biliary system: The gallbladder is surgically absent. Pancreas: Limited evaluation of the pancreas secondary to the lack of intravenous contrast. Spleen: The spleen demonstrates homogeneous attenuation and is not enlarged. Kidneys/bladder: Redemonstration of left-sided hydroureteronephrosis without a discrete source of obs truction. This finding was demonstrated on previous examination dated 05/21/2024 but is an interval change from the 2013 examination. The bladder is significantly distended, almost to the level of the umbilicus with markedly thickened irregular herrera and surrounding inflammatory change consistent with patient's presentation of severe urinary tract infection. Findings within the bladder are unchanged from 05/21/2024, but an interval change from 2012. The right kidney and ureter are unremarkable, unchanged from prior studies. Adrenal glands: Unremarkable. Gastrointestinal tract: Colonic diverticulosis without surrounding inflammatory change. Appendix: The air-filled appendix is of normal caliber (axial series, images 101 through 119) Vasculature: Unremarkable. Lymph nodes: No pathologically enlarged or morphologically suspicious lymph nodes within the retroperitoneum or at the root of the mesentery. Pelvic structures: As described above, bladder is distended, and demonstrates thickened herrera with surrounding inflammat ory change. The prostate gland is not enlarged. Body wall and musculoskeletal: Small fat-containing umbilical hernia. Age-appropriate degenerative disease within the lower thoracic and lumbosacral spines. IMPRESSION: Redemonstration of left-sided hydroureteronephrosis, unchanged from 05/21/2024 and an interval change from 10/25/2012, for which decompression is recommended as this is possibly the source of patient's new onset renal dysfunction. Bladder distention with irregular thickening of the bladder wall and surrounding inflammatory change, an interval change from 2012, but unchanged from 05/21/2024. Reviewed, dictated and finalized at location A. IMPRESSION: Redemonstration of left-sided hydroureteronephrosis, unchanged from 05/21/2024 a nd an interval change from 10/25/2012, for which decompression is recommended as this is possibly the source of patient's new onset renal dysfunction. Bladder distention with irregular thickening of the bladder wall and surroundin g inflammatory change, an interval change from 2012, but unchanged from 05/21/19 25.
--- NOTE | ~2024-11-27 | XR_ITS ---
EXAMINATION: XR chest 2V DATE: 11/27/2024 15:57 INDICATION: 2 weeks of cough and weakness TECHNIQUE: frontal and lateral views of the chest were obtained. COMPARISON: Chest radiograph dated 04/10/[address] dated 03/15/2008 FINDINGS: Stable appearance of chronic masslike opacities in the bilateral suprahilar and infrahilar regions wi th appearance favoring atelectasis/scarring on CT dated 03/15/2008. No new airspace opacities, pulmon efren edema, pleural effusion or pneumothorax. The cardiomediastinal silhouette is normal. Moderate tho racic spondylosis. Cholecystectomy clips in right upper quadrant. IMPRESSION: 1. Stable appearance of chronic bilateral perihilar opacities with appearance on CT from over 12 year s prior most consistent with chronic atelectasis/scarring. No acute cardiopulmonary disease. Reviewed, dictated and finalized at location A. IMPRESSION: 1. Stable appearance of chronic bilateral perihilar opacities with appearance o n CT from over 12 years prior most consistent with chronic atelectasis/scarring . No acute cardiopulmonary disease.
--- OUTSIDE RECORDS SUMMARY | 2024-11-27 14:55 | XMS_ITS | Clinical Summary ---
Author Organization [facility] Address [address] [place] [address] Phone Care Team Providers Care Outpatient Psychiatrist Name Role Phone Romulo Andre MD Primary Care Provider [phone] Peng Brooks MD Unavailable Allergies Active Allergy Reactions Criticality Noted Date Comments Codeine Nausea,Vomiting 08/10/2024 Medications atorvastatin (LIPITOR) 10 MG Tablet Take 10 mg by mouth daily. 5 Active ciprofloxacin (CIPRO) 500 MG Tablet take 1 tablet by mouth every 12 hours 5 Active folic acid (FOLVITE) 400 MCG Tablet take 1 tablet (0.4 mg) by oral route once daily 4 Active metoprolol Succinate (TOPROL-XL) 50 MG TABLET SR 24 HR Take 50 mg by mouth 2 times daily. 5 Active Potassium Chloride ER (KLORCON) 20 MEQ Tablet Controlled Release Take 20 mEq by mouth 2 times daily. 4 Active trospium (SANCTURA) 20 MG Tablet Take 1 Tablet by mouth 2 times daily. 60 Tablet 10 5 Active losartan (COZAAR) 100 MG Tablet Take 100 mg by mouth daily. Active Magnesium Citrate 100 MG Tablet Take 1 Tablet by mouth daily. Active Thiamine HCl (Vitamin B-1) 250 MG Tablet Take 1 Tablet by mouth every other day. Active Cyanocobalamin 1000 MCG/ML Kit 1 mL by Injection route every 30 days. Active cholecalciferol 25 mcg Tablet Take 25 mcg by mouth daily. Active DULoxetine (CYMBALTA) [address] Particles Take 30 mg by mouth 2 times daily. Active Hospital, Clinic, or Other Facility Administered Medication Ordered Dose Route Frequency Start Date End Date Status lidocaine Urethral/Mucosal (GLYDO) 2 % prefilled syringe for urethral catheter insertion PRSY 5 mLIndications:Hydroureteron ephrosis 5 mL TU ONCE 11/04/2024 11/04/2024 Ended Encounters Date Type Department Care Team Description 11/09/[address] [facility] [address] [place] [address] Peng Brooks MD 11/04/2024 9:15 AM CDT Office Visit [facility] [address] [place] [address] Peng Brooks MD Hydroureteronephrosis (Primary Dx) Discharge Disposition: Discharged to home or Selfcare 11/04/2024 Travel 09/11/2024 12:32 PM CDT - 09/11/2024 11:59 PM CDT Hospital Encounter [facility] Nuclear Medicine [address] [place] [address] Peng Brooks MD Discharge Disposition: Discharged to home or Selfcare 09/11/2024 Travel from Last 3 Months Family History Medical History Relation Name Comments Cancer Father blood Alzheimer's Disease Mother Relation Name Status Comments Father Mother Social History Tobacco Use Types Packs/Day Years Used Date Smoking Tobacco: Never Smokeless Tobacco: Never Tobacco Cessation:Counseling Given: Not Answered Alcohol Use Standard Drinks/Week Comments Yes 0 (1 standard drink = 0.6 oz pur e alcohol) occasional Sex and Gender Information Value Date Recorded Sex Assigned at Male 07/25/2024 8:39 AM CDT 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 Gender Identity Male 07/25/2024 8:39 AM CDT Sexual Orientation Straight 07/25/2024 8: 39 AM CDT Last Filed Vital Signs Vital Sign Reading Time Taken Comments Blood Pressure 158/80 11/04/2024 9:27 AM CDT Pulse 101 11/04/2024 9:27 AM CDT Temperature 36.1 C (96.9 F) 08/12/2024 3:00 PM CDT Respiratory Rate 18 11/04/2024 9:27 AM CDT Oxygen Saturation 98% 11/04/2024 9:27 AM CDT Inhaled Oxygen Concentration - - Weight 76.2 kg (168 lb) 11/04/2024 9:27 AM CDT Height 175.3 cm (5' 9) 09/11/2024 12:32 PM CDT Body Mass Index 24.81 09/11/2024 12:32 PM CDT Plan of Treatment Upcoming Encounters Date Type Department Care Team (Late st Contact Info) Description 12/30/2024 8:30 AM CDT Appointment [facility] Ultrasound [address] [place] [address] Peng Brooks MD [address] [address] Discharge Disposition: Discharged to home or Selfcare 01/13/2025 10:00 AM CDT Office Visit [facility] [address] [place] [address] Peng Brooks MD [address] [address] Health Maintenance Due Date Last Done Comments Hepatitis C Virus (HCV) Screening 1955 Cologuard 1998 Colonoscopy 1998 Colorectal Cancer Screening 1998 Immunochemical Fecal Occult Blood 1998 SARS-COV-2 Immunization ( season) 2023 03/20/2022, 11/20/2021, 03/15/2021, Additional history exists Influenza Immunization (#1) 2024 12/0 06/2023, 01/10/2023, 03/02/2022, Additional history exists Respiratory Syncytial Virus (RSV) Immunization (Adult) (1 - 1-dose 75+ series) 2028 Pneumococcal Immunization (50+ years) Completed 06/02/2020, 02/20/2019 Zoster Immunization Completed 01/10/2023, TdaP Immunization Completed 07/17/2024, 03/20/2022 Hepatitis B Immunization Aged Out No longer eligible based on patient's age to complete this topic Human Papillomavirus (HPV) Immunization Aged Out No longer eligible based on patient's age to complete this topic Meningococcal Immunization (ACWY) Aged Out No longer eligible based on patient's age to complete this topic Rotavirus Immunization Aged Out No lo nger eligible based on patient's age to complete this topic Medical Devices Implanted Type Area Melter Supervisor [employer] Device Identifier Shelf Expiration Date Model / Serial / Lot Stent Ureteral 6fr 2.1fr 28cm 2 Pigtail Curve 2 Durometer Taper Tip Loprfl Graduated Polaris Ultra - [id number] Implanted:Qty : 1 on 08/12/2024 by Peng Brooks MD at [facility] IMPLANT Left: Ureter [employer] 05/28/2027 [id number] / [id number] / [id number] Procedures Procedure Name Priority Date/Time Associated Diagnosis Comments POCT UA AUTOMATED W/O MICRO Routine 11/04/2024 9:02 AM CDT Hydroureteronephrosi s NM RENAL FUNCTION FLOW [facility] Routine 09/11/2024 1:43 PM CDT Hydronephrosis due to obstruction of ureter from Last 3 Months Results * (ABNORMAL) POCT UA AUTOMATED W/O MICRO (11/04/2024 9:02 AM CDT) POC UA SPECIFIC GRAVITY 1.015 URINE PH 5.0 5.0 - 9.0 POC URINE LEUKOCYTES 75 /uL(A) Negative Denzel/uL POC URINE NITRITE Negative Negative POC URINE PROTEIN Negative Negative mg/dL POC URINE GLUCOSE Norm Negative, Norm mg/dL POC URINE KETONE Negative Negative mg/dL POC URINE UROBILINOGEN Norm Norm, 0.2 E.U./dL (mg/dL), 1 E.U./dL (mg/dL) POC URINE BILIRUBIN Negative Negative mg/dL POC URINE BLOOD INSTRUMENT 50 Yan/uL(A) Negative Yan/uL POC URINE COLOR Yellow POC URINE CLARITY Clear Urine 11/04/2024 9:02 AM CDT us Peng Brooks MD POINT OF CARE TESTING (MANUAL) F inal Result * NM RENAL FUNCTION FLOW [facility] (09/11/2024 1:43 PM CDT) Anatomical Region Laterality Modality , Abdomen N/A Nuclear Medicine 09/11/2024 3:02 PM CDT Impressions 09/11/2024 3:04 PM CDT IMPRESSION: Unchanged split renal function with 42% contribution from the left kidney and 58% from the right kidney. Delayed left cortical uptake suggestive of underlying renal dysfunction. There is persistent delayed excretion and clearance of tracer from the left kidney, unlike prior study shows improvement post Lasix administration. No evidence of mechanical renal obstruction. Borderline delayed excretion and clearance of tracer from the right kidney. No evidence of mechanical obstruction Narrative 09/11/2024 3:04 PM CDT EXAM DESCRIPTION: NM RENAL FUNCTION FLOW [facility] RADIOPHARMACEUTICAL: 10.6 mCi Tc-99m MAG3 and 40 furosemide via a left antecubital IV site REASON FOR STUDY: Left hydronephrosis status post stent placement 08/12/2024 TECHNIQUE: Standard posterior abdominal scintigrams were obtained per the diuretic renal scintigraphy protocol. COMPARISON: Renal scintigraphic 07/27/2024 FINDINGS: Flow: Grossly normal dynamic flow. Split function: Borderline abnormal split function differential with left kidney receiving 42 % of activity and right kidney 58 %, unchanged from prior. Time to peak: Delayed time to peak of the left kidney at 17.5 minutes, the right kidney has a prompt time to peak of 3.5 minutes (normal less than 5 minutes). Excretion : . The left kidney: Shows delayed excretion and clearance of radiotracer. Calculated time to half max 23 minutes (normal less than 10 minutes). The right kidney: Shows delayed excretion and clearance of radiotracer. Calculated time to half max 13 minutes, previously 11 minutes (normal less than 10 minutes). Post Lasix administration: There is some degree of continued excretion and clearance of radiotracer from the both kidneys . Diuretic T1 half 9.0 minutes in the left kidney . THIS IS AN ELECTRONICALLY VERIFIED FINAL REPORT 09/11/2024 3:02 PM - Electronically signed by Josefa Bautista M.D. FT: FT Report ID: [id number] Reading Location: [id number] Procedure Note Josefa Ball MD - 09/11/2024 EXAM DESCRIPTION: NM RENAL FUNCTION FLOW [facility] RADIOPHARMACEUTICAL: 10.6 mCi Tc-99m MAG3 and 40 furosemide via a left antecubital IV site REASON FOR STUDY: Left hydronephrosis status post stent placement 08/12/2024 TECHNIQUE: Standard posterior abdominal scintigrams were obtained per the diuretic renal scintigraphy protocol. COMPARISON: Renal scintigraphic 07/27/2024 FINDINGS: Flow: Grossly normal dynamic flow. Split function: Borderline abnormal split function differential with left kidney receiving 42 % of activity and right kidney 58 %, unchanged from prior. Time to peak: Delayed time to peak of the left kidney at 17.5 minutes, the right kidney has a prompt time to peak of 3.5 minutes (normal less than 5 minutes). Excretion : . The left kidney: Shows delayed excretion and clearance of radiotracer. Calculated time to half max 23 minutes (normal less than 10 minutes). The right kidney: Shows delayed excretion and clearance of radiotracer. Calculated time to half max 13 minutes, previously 11 minutes (normal less than 10 minutes). Post Lasix administration: There is some degree of continued excretion and clearance of radiotracer from the both kidneys . Diuretic T1 half 9.0 minutes in the left kidney . THIS IS AN ELECTRONICALLY VERIFIED FINAL REPORT 09/11/2024 3:02 PM - Electronically signed by Josefa Bautista M.D. FT: FT Report ID: [id number] Reading Location: [id number] IMPRESSION: Unchanged split renal function with 42% contribution from the left kidney and 58% from the right kidney. Delayed left cortical uptake suggestive of underlying renal dysfunction. There is persistent delayed excretion and clearance of tracer from the left kidney, unlike prior study shows improvement post Lasix administration. No evidence of mechanical renal obstruction. Borderline delayed excretion and clearance of tracer from the right kidney. No evidence of mechanical obstruction us Peng Brooks MD [facility] Final Result from Last 3 Months [facility] Care Teams Outpatient Psychiatrist Relationship Specialty Start Date End Date Romulo Andre MD [address] [place] [address] PCP - General Internal Medicine 06/10/24 Peng Brooks MD [address] [phone] Consulting Physician Urology 06/10/24
--- OUTSIDE RECORDS SUMMARY | 2024-11-27 14:55 | XMS_ITS | Clinical Summary ---
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
--- NOTE | 2024-11-27 14:57 | ED_ITS ---
HPI - Weakness General Chief complaint: Upper Respiratory Infection Stated complaint: viral symptoms Time Seen by Provider: 11/27/24 14:57 Source: patient and family Mode of arrival: ambulatory Limitations: no limitations History of Present Illness HPI Narrative: Patient is a 69-year-old male with known left kidney problems here with fever and chills this past week and generalized weakness for the past 2 weeks. No chest pain or shortness of breath. He was sent by the primary doctor for evaluation of some mild tachycardia and his weakness for the past 2 weeks. Patient had a workup in the primary office before coming to the ER to include occult stool negative due to some dark stools from iron and EKG of sinus tachycardia. MD Complaint: generalized weakness Onset (ago): week(s) ( Two) Duration: constant Location: generalized Severity: moderate Severity scale (1-10): 4 Quality: other ( no pain) Relieving factors: none Exacerbating factors: none Context: other ( patient went to the primary doctor after being sick for the last couple weeks and having some fever and chills and weight loss to include generalized weakness) Associated symptoms: dark stools ( occult negative stool at the primary doctor office today per primary doctor sign out to me) and fever/chills Related Data Home Medications ?Medication ?Instructions ?Recorded ?Confirmed ?Last Taken ?Type atorvastatin 10 mg tablet 10 mg PO DAILY 08/10/20 06/30/21 Unknown History duloxetine 20 mg capsule,delayed 30 mg PO BID 08/10/20 06/30/21 Unknown History release magnesium oxide 400 mg (241.3 mg 400 mg PO DAILY 08/10/20 06/30/21 Unknown History magnesium) tablet metoprolol succinate 50 mg 50 mg PO BID 08/10/20 06/30/21 Unknown History tablet,extended release 24 hr potassium chloride 20 mEq 20 meq PO BID 08/10/20 06/30/21 Unknown History tablet,extended release Allergies Allergy/AdvReac Type Severity Reaction Status Date / Time codeine AdvReac Mild Vomiting Verified 11/27/24 15:08 Review of Systems 2 Review of Systems: All systems reviewed & are unremarkable except as noted in HPI and below Constitutional: Constitutional: Reports no additional constitutional complaints Eyes: Eyes: Reports no additional eye complaints ENT: Reports system reviewed and no additional complaints, except as documented Cardiovascular: Cardiovascular: Reports no additional cardiovascular complaints Respiratory: Respiratory: Reports no additional respiratory complaints Gastrointestinal: Gastrointestinal: Reports no additional gastrointestinal complaints Genitourinary: Genitourinary: Reports no additional male genitourinary complaints Musculoskeletal: Musculoskeletal: Reports no additional musculoskeletal complaints Integumentary/Breasts: Skin/Breast: Reports system reviewed and no additional complaints, except as docu Neurologic: Reports system reviewed and no additional complaints, except as documented Psychiatric: Psychiatric: Reports no additional psychiatric complaints Endocrine: Endocrine: Reports no additional endocrine complaints Hematologic/Lymphatic: Hematologic/Lymphatic: Reports no additional hematologic/lymphatic complaints Allergic/Immunologic: Allergic/Immunologic: Reports no additional allergic/immunologic complaints PMFSH Past Medical History Medical History Hemangioma of liver Irritable bowel syndrome Gastroesophageal reflux disease Hypertension Social History Social History Smoking status: Never smoker Second hand tobacco smoke exposure: Yes Alcohol intake: current Drinks per week: 2 Alcohol use details: Daily Substance use: never Substance use type: does not use Living arrangements: with family Spiritual care concerns: No Exam 2 Const: General: healthy appearing Nutritional Appearance: well nourished Orientation/consciousness: patient oriented x3 HENMT: Head: normal to inspection Ears: external ears normal F ryan/Nose/Sinus: Normal external nose present Eyes: Conjunctivae: conjunctivae normal Pupils: Equal, round and reactive pupils present EOM: EOMs intact bilaterally Neck: Neck: normal visual inspection Chest: Chest palpation & inspection: normal inspection of the chest Resp: Effort & Inspection: normal respiratory effort and not labored A uscultation: clear to auscultation bilaterally and no crackles Cardio: Rate: regular rate Rhythm: regular rhythm Heart sounds: no murmurs GI: Inspection: non-distended GI Palp: Yes Soft to palpation and No Tenderness to palpation present (GI) Auscultation: normal bowel sounds : General: Yes bladder normal to palpation Back/Spine/Pelvis: Back: no CVA tenderness Skin: General skin exam: normal color Rashes: no rashes Wounds: no wounds Neuro: General: patient oriented x3 Cranial nerves: Yes Nystagmus not present Speech: normal speech Other: Fast exam negative, NIH is 0, GCS is 15 Extrem: General: normal to inspection Psych: Mental Status: mental status grossly normal Affect: normal affect Attitude: cooperative Course Vital Signs Vital signs: Vital Signs Temperature 36.4 C 11/27/24 14:53 Pulse Rate 108 H 11/27/24 14:53 Respiratory Rate 18 11/27/24 14:53 Blood Pressure 132/76 11/27/24 14:53 Pulse Oximetry 97 11/27/24 14:53 Oxygen Delivery Room Air 11/27/24 14:53 Temperature 36.4 C 11/27/24 14:53 Pulse Rate 78 11/27/24 19:01 Respiratory Rate 16 11/27/24 19:01 Blood Pressure 125/53 L 11/27/24 19:01 Pulse Oximetry 99 11/27/24 19:01 Oxygen Delivery Room Air 11/27/24 19:01 MDM - Weakness MDM Narrative Medical decision making narrative: patient is a 69-year-old male with fever and chills and generalized weakness for the past 2 weeks sent by the primary doctor for evaluation. We will do workup at this time and look towards the kidneys as he has kidney problems in the past. Attempted to transfer the patient to [facility] where they did the last stent in August but the urologist said there is no surgical services until Saturday and it is Saturday. We will proceed with a different facility at this time. Higher level medical care needed at this time. Lab Data Attestation: I reviewed the patient's lab results. 11/27/24 15:45 11/27/24 15:45 Labs: Lab Results 11/27/24 11/27/24 Range/Units 15:45 16:12 WBC 9.1 (4.8-10.8) K/mm3 RBC 3.99 L (4.70-6.10) M/mm3 Hgb 12.1 L (12.4-15.3) g/dL Hct 38.5 (37.0-46.0) % MCV 96.5 (78.0-102.0) fL MCH 30.3 (27.0-31.0) pg MCHC 31.4 L (32-36) g/dL RDW 12.1 (11.6-14.4) % Plt Count 316 (150-420) K/mm3 MPV 9.1 (8.7-11.0) fl Immature Gran % (Auto) 0.7 H (0.0-0.0) % Neut % (Auto) 70.3 H (50.0-70.0) % Lymph % (Auto) 17.2 L (18.0-42.0) % [place] % (Auto) 11.1 H (2.0-11.0) % Eos % (Auto) 0.4 L (1.0-6.0) % Baso % (Auto) 0.3 (0.0-1.0) % Lymph # (Auto) 1.56 (1.10-4.50) K/mm3 [place] # (Auto) 1.01 H (0.10-0.90) K/mm3 Eos # (Auto) 0.04 (0.02-0.50) K/mm3 Baso # (Auto) 0.03 (0.00-0.10) K/mm3 Abs Immat Gran (auto) 0.06 H (0.00-0.00) K/mm3 Absolute Neuts (auto) 6.38 (1.70-7.20) K/mm3 Absolute Nucleated RBC 0.00 (0.00-0.00) K/mm3 Nucleated RBC % 0.0 (0-0.0) % PT 11.8 (9.50-12.1) Seconds INR 1.1 APTT 34.0 H (23.9-30.70) Sec Sodium 138 (137-145) mmol/L Potassium 4.2 (3.4-5.0) mmol/L Chloride 103 (98-107) mmol/L Carbon Dioxide 26 (22-30) mmol/L Anion Gap 9 (4-12) mmol/L BUN 26 H (9-20) mg/dL Creatinine 2.19 H (0.7-1.3) mg/dL Estim Creat Clear Calc 28 ml/min Estimated GFR 30 L (59 - ) Glucose 153 H (65-110) mg/dL Calculated Osmolality 293 (285-295) mOsm/kg Lactic Acid 0.8 (0.4-2.0) mmol/L Calcium 9.6 (8.4-10.2) mg/dL Magnesium 2.2 (1.6-2.3) mg/dL Total Bilirubin 1.2 (0.2-1.3) mg/dL AST 27 (17-59) U/L ALT 23 (6-50) U/L Alkaline Phosphatase 75 (38-126) U/L Troponin I < 0.012 (0.000-0.034) ng/mL NT-Pro-B Natriuret Pep 265 H (19.9-100) pg/mL Total Protein 8.6 H (6.3-8.2) g/dL Albumin 4.2 (3.5-5.1) g/dL TSH 2.990 (0.465-4.680) uIU/mL Free T4 0.96 (0.78-2.19) ng/dL Free T3 pg/mL 2.84 (2.18-3.98) pg/mL Urine Color Yellow (Yellow) Urine Appearance Cloudy A (Clear) Urine pH 6.0 (5.0-8.0) Ur Specific [place] 1.015 (1.010-1.020) Urine Protein 1+ H (Negative) Urine Glucose (UA) Negative (Negative) Urine Ketones Negative (Negative) Ur Blood (Man) 2+ H (Negative) Urine Nitrate Positive H (Negative) Urine Bilirubin Negative (Negative) Urine Urobilinogen 0.2 (0.2-1.0) mg/dL Leukocyte Esterase Rfl 3+ H (Negative) DEAN/UL Urine RBC 3-5 H (0-2) /hpf Urine WBC >100 (0-3) /hpf Urine Bacteria 3+ H (None) /hpf Imaging Data Attestation: I personally reviewed and interpreted this imaging study as follows: Radiologist's impression: Chest x-rays negative for acute process and chronic changes seen CT scan of the abdomen and pelvis shows IMPRESSION: Redemonstration of left-sided hydroureteronephrosis, unchanged from 05/21/2024 and an interval change from 10/25/2012, for which decompression is recommended as this is possibly the source of patient's new onset renal dysfunction. Bladder distention with irregular thickening of the bladder wall and surrounding inflammatory change, an interval change from 2012, but unchanged from 05/21/2024. ECG Data EKG #1: Attestation: I personally reviewed and interpreted this ECG as follows: ECG completion date: 11/27/24 ECG completion time: 16:42 Prior ECG tracings: available for review ( no acute change) EKG Interpretation: tachycardia, sinus rhythm, no ectopy, non-specific ST changes, normal QRS, RBBB ( associated left anterior fascicular block), normal QT and left axis Discharge Plan Discharge Clinical Impression: Hydroureteronephrosis, Acute UTI, JAHAIRA (acute kidney injury) Patient Disposition: Acute Care Hospital Condition: Stable Patient Language: Paraguayan Prescriptions: No Action losartan [Cozaar] 50 mg Tablet 100 mg PO DAILY Qty: 30 0RF thiamine HCl (vitamin B1) [Vitamin B-1] 100 mg Tablet 100 mg PO QAM Qty: 90 0RF folic acid 400 mcg Tablet 0.4 mg PO DAILY Qty: 90 0RF chlordiazepoxide HCl 25 mg Capsule 25 mg PO Q12HR 5 Days Qty: 10 0RF cyanocobalamin (vitamin B-12) 1,000 mcg/mL Solution 1,000 mcg IM DAILY 5 Days Qty: 5 0RF azithromycin [Zithromax Z-Eugene] 250 mg tablet See Rx Instructions .ROUTE .COMPLEX Qty: 6 0RF Rx Instructions: For 250 mg dose pack: take 500 mg today (day 1), then 250 mg for 4 days (days 2-5) benzonatate 200 mg capsule 200 mg PO TID PRN (Reason: cough) Qty: 20 0RF fluticasone propionate [Flonase Allergy Relief] 50 mcg/actuation spray,suspension 2 spray intranasal DAILY Qty: 16 0RF Rx Instructions: administer into each nostril magnesium oxide 400 mg (241.3 mg magnesium) tablet 400 mg PO DAILY potassium chloride 20 mEq tablet extended release 20 meq PO BID duloxetine 20 mg capsule,delayed release(DR/EC) 30 mg PO BID metoprolol succinate 50 mg tablet extended release 24 hr 50 mg PO BID atorvastatin 10 mg tablet 10 mg PO DAILY Follow-up/Referrals: Romulo Andre MD [Primary Care Provider] - Time of Disposition: 18:23
--- NOTE | 2024-11-27 15:16 | ECG_ITS ---
Test Date: 2024-11-27 15:37:13 Measurements Intervals [place] Rate: 102 P: 53 WA: 147 QRS: -55 QRSD: 129 T: 14 QT: 337 QTc: 440 Interpretive Statements SINUS TACHYCARDIA RIGHT BUNDLE BRANCH BLOCK LEFT ANTERIOR FASCICULAR BLOCK ABNORMAL ECG No previous ECG available for comparison Electronically Signed On 11-27-2024 16:16:37 CDT by Seth Blancas D.O.
[2024-11-27 15:50] LABS: Hematocrit 38.5 % (37.0-46.0); Hemoglobin 12.1 g/dL (12.4-15.3); Immature Granulocyte Percent A 0.7 % (0.0-0.0); Lymphocytes Absolute Auto 1.56 K/mm3 (1.10-4.50); Mean Corpuscular HGB Conc 31.4 g/dL (32-36); Mean Corpuscular Hemoglobin 30.3 pg (27.0-31.0); Mean Corpuscular Volume 96.5 fL (78.0-102.0); Nucleated Red Blood Cells Absolute Auto 0.00 K/mm3 (0.00-0.00); Nucleated Red Blood Cells Perc 0.0 % (0-0.0); Platelet Count Result 316 K/mm3 (150-420); Red Blood Count 3.99 M/mm3 (4.70-6.10); White Blood Count 9.1 K/mm3 (4.8-10.8)
--- OUTSIDE RECORDS SUMMARY | 2024-11-27 15:53 | XMS_ITS | Clinical Summary ---
Author Organization [facility] Address [address] [place] [id number] Care Team Providers Care Assistant Speech Language Pathologist Name Role Phone Unavailable Primary Care Provider Unavailabl e Social History Tobacco Use Types Packs/Day Years Used Date Smoking Tobacco: Never Assessed Sex and Gender Information Value Date Recorded Sex Assigned at Not on file Legal Sex Male 9:55 PM [employer] Gender Identity Not on file Sexual Orientation [...]
--- OUTSIDE RECORDS SUMMARY | 2024-11-27 15:53 | XMS_ITS | Clinical Summary ---
Author Organization [facility] Address [address] [place] [address] Phone Care Team Providers Care Manager Field Sales Name Role Phone Romulo Andre MD Primary Care Provider [phone] Peng Brooks MD Unavailable Allergies Active Allergy [...] Type Department Care Team Description 11/09/2024 Telephone [facility] [address] [place] [address] Peng Brooks MD 11/04/2024 9:15 AM CDT Office Visit [facility] [address] [place] [address] Peng Brooks MD Hydroureteronephrosis (Primary Dx) Discharge Disposition: Discharged to home or Selfcare 11/04/2024 Travel 09/11/2024 12:32 PM CDT - 09/11/2024 11:59 PM CDT Hospital Encounter [facility] Nuclear Medicine [address] [place] [address] Peng Brooks MD Discharge Disposition: Discharged to [...] AM CDT 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 Gender Identity Male 07/25/2024 8:39 AM CDT [...] 12/30/2024 8:30 AM CDT Appointment [facility] Ultrasound [address] [place] [address] Peng Brooks MD [address] [address] Discharge Disposition: Discharged to home or Selfcare 01/13/2025 10:00 AM CDT Office Visit [facility] [address] [place] [address] Peng Brooks MD [address] [phone] Health Maintenance Due Date Last Done Comments [...] this topic Medical Devices Implanted Type Area Fuse Maker Device Identifier Shelf Expiration Date Model / Serial / Lot Stent Ureteral 6fr 2.1fr 28cm 2 Pigtail Curve 2 Durometer Taper Tip Loprfl Graduated Polaris Ultra - [id number] Implanted:Qty : 1 on 08/12/2024 by Peng Brooks MD at [facility] IMPLANT Left: Ureter SynapCell 05/28/2027 [id number] / [id number] / [id number] Procedures Procedure Name Priority Date/Time Associated Diagnosis Comments POCT UA AUTOMATED W/O MICRO Routine 11/04/2024 9:02 AM CDT Hydroureteronephrosi s NM RENAL FUNCTION FLOW [facility] PHARM Routine 09/11/2024 1:43 PM CDT Hydronephrosis [...] inal Result * NM RENAL FUNCTION FLOW [facility] PHARM (09/11/2024 1:43 PM CDT) Anatomical Region [...] CDT EXAM DESCRIPTION: NM RENAL FUNCTION FLOW [facility] PHARM RADIOPHARMACEUTICAL: 10.6 mCi Tc-99m MAG3 and [...] Josefa Bautista M.D. FT: FT Report ID: [id number] Reading Location: [id number] Procedure Note Josefa Ball MD - 09/11/2024 EXAM DESCRIPTION: NM RENAL FUNCTION FLOW [facility] PHARM RADIOPHARMACEUTICAL: 10.6 mCi Tc-99m MAG3 and [...] Josefa Bautista M.D. FT: FT Report ID: [id number] Reading Location: [id number] IMPRESSION: Unchanged split renal function with 42% [...] of mechanical obstruction us Peng Brooks MD [facility] [place] ORDERABLES Final Result from Last 3 Months Insurance [facility]IC[facility] Care Teams Manager Field Sales Relationship Specialty Start Date End Date Romulo Andre MD [address] [place] [address] PCP - General Internal Medicine 06/10/24 Peng Brooks MD [address] [id number] Consulting Physician Urology 06/10/24
[2024-11-27 16:07] LABS: INR 1.1; Partial Thromboplastin Time 34.0 Sec (23.9-30.70); Prothrombin Time 11.8 Seconds (9.50-12.1)
[2024-11-27 16:19] LABS: Alanine Aminotransferase 23 U/L (6-50); Albumin Level 4.2 g/dL (3.5-5.1); Alkaline Phosphatase 75 U/L (38-126); Anion Gap 9 mmol/L (4-12); Aspartate Amino Transferase 27 U/L (17-59); Bilirubin,Total 1.2 mg/dL (0.2-1.3); Blood Urea Nitrogen 26 mg/dL (9-20); Calcium 9.6 mg/dL (8.4-10.2); Carbon Dioxide 26 mmol/L (22-30); Chloride 103 mmol/L (98-107); Estimated CRCL calculation 28 ml/min; Estimated Glomerular Filt Rate 30; Glucose 153 mg/dL (65-110); Magnesium 2.2 mg/dL (1.6-2.3); Osmolality Calculated 293 mOsm/kg (285-295); Potassium 4.2 mmol/L (3.4-5.0); Sodium 138 mmol/L (137-145); Total Protein 8.6 g/dL (6.3-8.2)
[2024-11-27 16:30] LABS: Troponin I < 0.012 ng/mL (0.000-0.034)
[2024-11-27] MEDS: SODIUM CHLORIDE 0.9% IV 1,000 ML 999 ML IV CONT (16:35)
[2024-11-27 16:46] LABS: Appearance Urine Cloudy (Clear)
[2024-11-27 16:47] LABS: Add Urine Microscopic? YES; Glucose Urine UA Negative (Negative); Leukocyte Esterase Ur 3+ LEU/UL (Negative); Nitrate Urine Positive (Negative); Specific Grav Ur 1.015 (1.010-1.020)
[2024-11-27 16:49] LABS: Thyroid Stimulating Hormone 2.990 uIU/mL (0.465-4.680)
[2024-11-27 17:14] LABS: NT Pro B Type Natriuretic Pept 265 pg/mL (19.9-100)
[2024-11-27] MEDS: PIPERACILLIN/TAZOBACTAM SOD 3.375 GM in SODIUM CHLORIDE 0.9% IV 50 ML 100 ML IVPB (17:20)
[2024-11-27 17:22] LABS: Free T3 2.84 pg/mL (2.18-3.98)
[2024-11-27 17:52] LABS: Free T4 Free Thyroxine 0.96 ng/dL (0.78-2.19)
--- NOTE | 2024-11-27 19:47 | PC.NURSE ---
PATIENT WAS UPDATED THAT DR LEVI HAS SPOKE WITH UROLOGY AT [facility]. WAITING ON HOSPITALIST TO RETURN CALL
--- NOTE | 2024-11-27 20:02 | PC.NURSE ---
PATIENT UPDATED THAT HE WILL BE GOING TO [facility]. PATIENT AND FAMILY VERBALIZED UNDERSTANDING
--- NOTE | 2024-11-27 20:36 | PC.NURSE ---
PATIENT AND FAMILY MEMBER WAS UPDATED WITH ROOM ASSIGNMENT AT [facility]. ADDRESS PROVIDER FOR FAMILY. PATIENT VERBALIZED UNDERSTANDING
--- NOTE | 2024-11-27 20:49 | PC.NURSE ---
PATIENT IS CURRENTLY RESTING ON STRETCHER IN ROOM. AWAITING EMS TRANSFER TO [facility]. DENIES ANY NEEDS AT THIS TIME.
--- NOTE | 2024-11-27 21:24 | PC.NURSE ---
SANDWICH AND A PEPSI WAS PROVIDED. PATIENT TO BE NPO AFTER MIDNIGHT PER DR LEVI
--- NOTE | 2024-12-01 13:21 | PC.NURSE ---
PRELIMINARY BLOOD CULTURE NOT GROWTH IN 24 HOURS
--- NOTE | 2024-12-01 13:26 | PC.NURSE ---
URINE CC CULTURE PRELIMINARY GREATER THAN 100,000 COLONY FORMING GRAM NEGATIVE BACILLI ISOLATED PT GIVEN ZOSYN 3.[address] LEVI PT IS COVERED
--- NOTE | 2024-12-02 13:15 | PC.NURSE ---
preliminary blood cultures x2 reviewed. no growth in 48 hours
--- NOTE | 2024-12-03 13:15 | PC.NURSE ---
final urine culture report reviewed. > 100,000 klebsiella oxytoca isolated. pt transferred to [facility] on 11/27 and has since been discharged. pt not answering phone call. pmd, dr hair called and culture report shared with him. cra officer states they will see pt and treat appropriately
--- NOTE | 2024-12-05 13:40 | PC.NURSE ---
Final blood culture report; no growth in 5 days. no further action or treatment needed.
== END 2024-11-27 21:55 | disposition short-term general hospital (02) ==
PROVIDERS: Emergency Provider Emergency Medicine; PCP Internal Medicine
DX: N13.30 Unspecified hydronephrosis (principal); N39.0 Urinary tract infection, site not specified; N17.9 Acute kidney failure, unspecified; I10 Essential (primary) hypertension
CPT/HCPCS: 36415; 71046; 74176; 80053; 81001; 83605; 83735; 83880; 84439; 84443; 84481; 84484; 85025; 85610; 85730; 93005; 96361; 96365; 99285; J2543; J7030